=== PATIENT | female | born 1940 | race Caucasian/White ===

== ENCOUNTER 2017-05-24 16:22 | Inpatient (IN) | payer MEDICARE, BC ==
[~2017-05-24] VITALS: Ht 154.9 cm; Wt 68.0 kg
[2017-05-24 16:54] LABS: HEMATOCRIT 41.2 % (37.0-47.0); MEAN CORPUSCULAR VOLUME 96 FL (80-99); PLATELET COUNT 283 K/UL (150-450); RED CELL DISTRIBUTION WIDTH 13.9 % (11.6-14.8); WHITE BLOOD COUNT 12.2 K/UL (4.8-10.8)
[2017-05-24 17:37] VITALS: BP 107/84
[2017-05-24 17:49] LABS: ANION GAP 10 mmol/L (5-15); BLOOD UREA NITROGEN 12 mg/dL (7-18); CALCIUM 9.5 MG/DL (8.5-10.1); CARBON DIOXIDE 25 MMOL/L (21-32); CHLORIDE 105 MMOL/L (98-107); CREATININE 1.2 MG/DL (0.55-1.30); POTASSIUM 4.1 MMOL/L (3.5-5.1); SODIUM 140 MMOL/L (136-145)
[2017-05-24 18:02] LABS: ALANINE AMINOTRANSFERASE 10 U/L (12-78); ALBUMIN 3.6 G/DL (3.4-5.0); ALKALINE PHOSPHATASE 59 U/L (46-116); ASPARTATE AMINO TRANSFERASE 25 U/L (15-37); BILIRUBIN,TOTAL 0.4 MG/DL (0.2-1.0); CKMB 2.2 NG/ML (0.0-3.6); CREATINE KINASE 88 U/L (26-308)
[2017-05-24] MEDS ORDERED: HYDROCHLOROTHIA50 MG ORAL (19:05)
[2017-05-24] MEDS ORDERED: LABETALOL HCL100 MG ORAL (19:05)
[2017-05-24] MEDS ORDERED: BISACODYL5 MG ORAL (19:05)
[2017-05-24] MEDS ORDERED: PANTOPRAZOLE SO40 MG ORAL (19:05)
[2017-05-24] MEDS ORDERED: B COMPLEX1 EACH ORAL (19:05)
[2017-05-24] MEDS ORDERED: POTASSIUM CHLO20 ME1 ORAL (19:05)
[2017-05-24] MEDS ORDERED: MIRALAX17 G2 ORAL (19:05)
[2017-05-24] MEDS ORDERED: PREDNISONE10 MG ORAL (19:05)
[2017-05-24] MEDS ORDERED: LEXAPRO10 MG ORAL (19:05)
[2017-05-24] MEDS ORDERED: NEURONTIN100 MG ORAL (19:05)
[2017-05-24] MEDS ORDERED: BENADRYL25 MG ORAL (19:05)
--- NOTE | 2017-05-24 19:10 | Emergency Room Report ---
History of Present Illness General Chief Complaint: Chest Pain Source: Patient, Medical Record Present Illness HPI 77-year-old female presents ED for evaluation. Per EMS patient presented with chest pain at long-term today started around 2:30. Sudden at rest. Pressure -like, left-sided, nonradiating. Patient was given aspirin and nitroglycerin x2 with chest pain resolved. Denies any chest pain at this time. Denies any fevers or chills. Denies cough. No other active any relieving factors. Denies any other associated symptoms Allergies: Coded Allergies: CIPROFLOXACIN (Unverified Allergy, Unknown, 05/24/17) LEVOFLOXACIN (Unverified Allergy, Unknown, 05/24/17) MORPHINE (Verified Allergy, Unknown, RASH, 05/10/10) QUINOLONES (Unverified Allergy, Unknown, 05/24/17) Uncoded Allergies: CHOCOLATE (Allergy, Unknown, RASH, 05/10/10) Patient History Past Medical History: none Past Surgical History: none Pertinent Family History: none Social History: Reports: smoking, alcohol use, drug use Now: No Immunizations: UTD Reviewed Nursing Documentation: PMH: Agreed, PSxH: Agreed Nursing Documentation-PMH Past Medical History: No History, Except For Hx Hypertension: Yes Review of Systems All Other Systems: negative except mentioned in HPI Physical Exam Vital Signs Date Time Temp Pulse Resp B/P (MAP) Pulse Ox O2 Delivery O2 Flow Rate FiO2 05/24/17 16:07 102 17 116/78 99 Room Air 05/24/17 17:37 97.6 Sp02 EP Interpretation: reviewed, normal General Appearance: no apparent distress, alert, GCS 15, non-toxic Head: normocephalic, atraumatic Eyes: bilateral eye normal inspection, bilateral eye PERRL ENT: hearing grossly normal, normal pharynx, no angioedema, normal voice Neck: full range of motion, supple/symm/no masses Respiratory: chest non-tender, lungs clear, normal breath sounds, speaking full sentences Cardiovascular #1: regular rate, rhythm, no edema Cardiovascular #2: 2+ carotid (R), 2+ carotid (L), 2+ radial (R), 2+ radial (L) , 2+ dorsalis pedis (R), 2+ dorsalis pedis (L) Gastrointestinal: normal bowel sounds, non tender, soft, non-distended, no guarding, no rebound Rectal: deferred Genitourinary: normal inspection, no CVA tenderness Musculoskeletal: back normal, gait/station normal, normal range of motion, non- tender Neurologic: alert, oriented x3, responsive, motor strength/tone normal, sensory intact, speech normal Psychiatric: judgement/insight normal, memory normal, mood/affect normal, no suicidal/homicidal ideation Reflexes: 3+ bicep (R), 3+ bicep (L), 3+ tricep (R), 3+ tricep (L), 3+ knee (R) , 3+ knee (L) Skin: normal color, no rash, warm/dry, well hydrated Lymphatic: no adenopathy Medical Decision Making Diagnostic Impression: Primary Impression: ACS (acute coronary syndrome) ER Course Hospital Course 77-year-old female presents ED complaining of chest pain at long-term. Resolved after asa and nitroglycerin Differential diagnoses include: AZ/unstable angina, contusion, muscle strain, PTX, rib fracture Clinical course Patient placed on stretcher. on ekg monitor tech. After initial history and physical I ordered labs, EKG, chest x-ray labs reviewed- no leukocytosis, hb/hct stable, electrolytes ok, trop negative EKG - NSR, no acute ischemic changes interpreted by me Chest x-ray- cardiomegaly, no acute infitlrate Case discussed with and he agreed to accept the patient to his service for further care and support I. I feel this is a highly complex case requiring extensive working including EKG/Rhythm strip, Xray/CT/US, Blood/urine lab work, repeat exams while in ED, and administration of strong opiates/narcotics for pain control, admission to hospital or close patient follow up. Diagnosis - ACS admitted to telemetry in serious condition Labs Test 05/24/17 16:45 White Blood Count 12.2 K/UL (4.8-10.8) Red Blood Count 4.30 M/UL (4.20-5.40) Hemoglobin 13.0 G/DL (12.0-16.0) Hematocrit 41.2 % (37.0-47.0) Mean Corpuscular Volume 96 FL (80-99) Mean Corpuscular Hemoglobin 30.2 PG (27.0-31.0) Mean Corpuscular Hemoglobin Concent 31.5 G/DL (32.0-36.0) Red Cell Distribution Width 13.9 % (11.6-14.8) Platelet Count 283 K/UL (150-450) Mean Platelet Volume 7.4 FL (6.5-10.1) Neutrophils (%) (Auto) % (45.0-75.0) Lymphocytes (%) (Auto) % (20.0-45.0) Monocytes (%) (Auto) % (1.0-10.0) Eosinophils (%) (Auto) % (0.0-3.0) Basophils (%) (Auto) % (0.0-2.0) Differential Total Cells Counted 100 Neutrophils % (Manual) 85 % (45-75) Lymphocytes % (Manual) 10 % (20-45) Monocytes % (Manual) 3 % (1-10) Eosinophils % (Manual) 2 % (0-3) Basophils % (Manual) 0 % (0-2) Band Neutrophils 0 % (0-8) Platelet Estimate Adequate Platelet Morphology Normal Red Blood Cell Morphology Normal Sodium Level 140 MMOL/L (136-145) Potassium Level 4.1 MMOL/L (3.5-5.1) Chloride Level 105 MMOL/L (98-107) Carbon Dioxide Level 25 MMOL/L (21-32) Anion Gap 10 mmol/L (5-15) Blood Urea Nitrogen 12 mg/dL (7-18) Creatinine 1.2 MG/DL (0.55-1.30) Estimat Glomerular Filtration Rate mL/min (>60) Glucose Level 121 MG/DL (74-106) Calcium Level 9.5 MG/DL (8.5-10.1) Total Bilirubin 0.4 MG/DL (0.2-1.0) Aspartate Amino Transf (AST/SGOT) 25 U/L (15-37) Alanine Aminotransferase (ALT/SGPT) 10 U/L (12-78) Alkaline Phosphatase 59 U/L (46-116) Total Creatine Kinase 88 U/L (26-308) Creatine Kinase MB 2.2 NG/ML (0.0-3.6) Creatine Kinase MB Relative Index 2.5 Troponin I 0.000 ng/mL (0.000-0.056) Pro-B-Type Natriuretic Peptide 117 pg/mL (0-125) Total Protein 7.1 G/DL (6.4-8.2) Albumin 3.6 G/DL (3.4-5.0) Globulin 3.5 g/dL Albumin/Globulin Ratio 1.0 (1.0-2.7) EKG Diagnostic Results Rate: normal Rhythm: NSR ST Segments: no acute changes ASA given to the pt in ED: No - given by ems Rhythm Strip Diag. Results EP Interpretation: yes Rhythm: NSR, no PVC's, no ectopy Chest X-Ray Diagnostic Results Chest X-Ray Diagnostic Results : Chest X-Ray Ordered: Yes # of Views/Limited/Complete: 1 View Indication: Chest Pain EP Interpretation: Yes Interpretation: no consolidation, no effusion, no pneumothorax, no acute cardiopulmonary disease Impression: No acute disease Electronically Signed by: Electronically signed by Narciso Sevilla MD Last Vital Signs Date Time Temp Pulse Resp B/P (MAP) Pulse Ox O2 Delivery O2 Flow Rate FiO2 05/24/17 17:39 93 18 Room Air 05/24/17 17:37 97.6 107/84 97 Status: improved Disposition: ADMITTED INPATIENT Condition: Serious Referrals: JAMES MARES (PCP) NARCISO SEVILLA M.D. May 24, 2017 19:10
[2017-05-24] MEDS ORDERED: SENNA8.6 M2 PO (19:17)
[2017-05-24] MEDS ORDERED: COLACE100 MG ORAL (19:17)
[2017-05-24] MEDS ORDERED: TRAZODONE HCL100 MG ORAL (19:17)
[2017-05-24] MEDS ORDERED: SYNTHROID75 MCG ORAL (19:17)
[2017-05-24] MEDS ORDERED: SEROQUEL25 MG ORAL (19:17)
[2017-05-24] MEDS ORDERED: HYDRALAZINE HCL10 MG ORAL (19:17)
[2017-05-24] MEDS ORDERED: FENTANYL1 EACH TDERMAL (19:17)
[2017-05-24] MEDS ORDERED: CALCIUM CITRAT250 M1 PO (19:17)
[2017-05-24] MEDS ORDERED: XARELTO20 MG ORAL (19:17)
[2017-05-24 19:19] VITALS: BP 87/57
[2017-05-24] MEDS ORDERED: oxyCODONE HCL/Acetaminophen 5/325mg ORAL ONE ×2 (19:52→20:00)
[2017-05-24 20:01] VITALS: BP 108/53
[2017-05-24] MEDS ORDERED: Miralax 17gm pkt ORAL PRN ×2 (22:45→23:00)
[2017-05-24] MEDS ORDERED: TraZODone 100mg tab ORAL SCH (22:45)
[2017-05-25] VITALS: BP 124/94
[2017-05-25] MEDS: TraZODone 100mg tab ORAL SCH ×2 (02:01→21:15)
[2017-05-25 03:52] VITALS: BP 145/77
[2017-05-25 04:49] LABS: CREATINE KINASE 78 U/L (26-308)
[2017-05-25 08:00] VITALS: BP 140/70
[2017-05-25] MEDS: HydrALAZINE 10mg Tab ORAL SCH ×3 (08:35→18:20)
[2017-05-25] MEDS: Docusate 100mg cap ORAL SCH ×2 (08:35→18:20)
[2017-05-25] MEDS: Bisacodyl EC 5mg tab ORAL SCH (08:36)
[2017-05-25] MEDS: Xarelto 10mg tab ORAL SCH (08:40)
[2017-05-25] MEDS ORDERED: Docusate 100mg cap ORAL SCH (09:00)
[2017-05-25] MEDS ORDERED: HydrALAZINE 10mg Tab ORAL SCH (09:00)
[2017-05-25] MEDS ORDERED: Xarelto 10mg tab ORAL SCH (09:00)
--- NOTE | 2017-05-25 09:34 | Diagnostic Imaging Report ---
Indication: Chest pain Technique: XRAY Chest 1v Comparison: 05/09/2010 Findings: Limited exam due to low lung volumes, this exaggerates the cardiac mediastinal contour and pulmonary vascularity. Heart size is likely stable allowing for differences in technique. No definite focal airspace consolidation. No pleural effusion or pneumothorax. No acute osseous abnormality. Impression: Limited exam with low lung volumes, which artifactually exaggerate heart size and pulmonary vascularity. Repeat exam with improved inspiratory effort is recommended for more reliable assessment. No focal airspace consolidation, pleural effusion or pneumothorax. Study obtained via the emergency department however patient admitted to the hospital at time of dictation of the final report.
[2017-05-25 12:00] VITALS: BP 114/57
--- NOTE | 2017-05-25 13:13 | Geriatric Progress Note ---
Subjective Interval Events Patient of Paul Henson at [facility] x years, sent to [facility] ED for c/o chest pain. Initial EKG, troponin unremarkable.except for possible old lateral infarct. Currently c/o weakness, difficulty ambulating. C/o chest pain are vague and not typical for ACS. Patient seems hypersensitive to palpation throughout, with dysthymic affect. PMH: 1. Chronic diastolic CHF. 2. Chronic pain syndrome. 3. DDD. 4. GERD. 5. Hyperlipidemia. 6. HTN. 7. Hypothyroidism. 8. Hx acute embolic stroke. 9. S/p hyst. 10. S/p ? bowel obstruction with permanent colostomy. - s/p periumbilical hernia repair, colonic vesical fistula. 11. Sleep disorder. 12. ? Lupus. 13. Gait instability, FWW, Assist x 1. Meds: HCTZ 50mg qd. Labetalol 100mg daily. Lexapro 30mg qd. MiraLax 17gm qd. Neurontin 300mg daily. Pantoprazole 40 daily. KCl 20 meq qd. Prednisone 10mg daily. Senna 2 tabs qhs. Synthroid 75mcg daily. Trazodone 200mg qhs. Xarelto 20mg qd. Colace 200mg bid. Seroquel 25mg bid. CaCitrate 500mg tid. Hydralazine 15mg tid. Benadryl 50mg q6 prn. Fentanyl 25 mcg/hr q72. Hydroxyzine 25mg qhs prn. DuoNeb UD q4 prn. Percocet 10/325 q4 prn. Zofran 4 q6 prn. Zyrtec 10mg prn qd. PE: Hypersensitive to contact all over skin with no visible signs of irritation , erythema, calor. Chest: clear. CV: RR Abd: obese, ostomy in LLQ. Ext: without focal tenderness. Obese. mod/max A to stand. Normal speech, some vagueness in history, dysthymia, insisting that brother is forcing her to stay at [facility] rather than go home. No evidence for ACS. ?UTI. ?atypical influenza episode. ?mild adrenal insufficiency due to chronic suppression by prednisone. Suspect major chronic depression with somatization, anxiety, chronic pain. Check HgbA1c, urine, rapid influenza test to determine if patient can return to SNF or should be admitted. Dictated #[id number]. Geriatric Geriatric Last 24 Hour Vital Signs Date Time Temp Pulse Resp B/P (MAP) Pulse Ox O2 Delivery O2 Flow Rate FiO2 05/25/17 08:37 84 140/70 05/25/17 08:35 140/70 05/25/17 08:00 88 05/25/17 08:00 97.2 91 18 140/70 95 Room Air 05/25/17 04:00 85 05/25/17 03:52 97.4 99 18 145/77 95 Room Air 05/25/17 00:00 97.2 109 20 124/94 95 Room Air 05/25/17 00:00 91 05/24/17 20:52 97.6 05/24/17 20:02 97.6 92 14 108/53 96 Room Air 05/24/17 20:01 97.6 92 14 108/53 96 Room Air 05/24/17 20:00 73 05/24/17 17:39 93 18 Room Air 05/24/17 17:37 97.6 93 18 107/84 97 Room Air 05/24/17 16:07 102 17 116/78 99 Room Air Intake and Output 05/24/17 05/25/17 19:00 07:00 Intake Total 0 ml 240 ml Balance 0 ml 240 ml Intake Oral 240 ml Other 0 ml Laboratory Tests Test 05/24/17 16:45 05/25/17 04:00 05/25/17 12:00 White Blood Count 12.2 K/UL (4.8-10.8) H Red Blood Count 4.30 M/UL (4.20-5.40) Hemoglobin 13.0 G/DL (12.0-16.0) Hematocrit 41.2 % (37.0-47.0) Mean Corpuscular Volume 96 FL (80-99) Mean Corpuscular Hemoglobin 30.2 PG (27.0-31.0) Mean Corpuscular Hemoglobin Concent 31.5 G/DL (32.0-36.0) L Red Cell Distribution Width 13.9 % (11.6-14.8) Platelet Count 283 K/UL (150-450) Mean Platelet Volume 7.4 FL (6.5-10.1) Neutrophils (%) (Auto) % (45.0-75.0) Lymphocytes (%) (Auto) % (20.0-45.0) Monocytes (%) (Auto) % (1.0-10.0) Eosinophils (%) (Auto) % (0.0-3.0) Basophils (%) (Auto) % (0.0-2.0) Differential Total Cells Counted 100 Neutrophils % (Manual) 85 % (45-75) H Lymphocytes % (Manual) 10 % (20-45) L Monocytes % (Manual) 3 % (1-10) Eosinophils % (Manual) 2 % (0-3) Basophils % (Manual) 0 % (0-2) Band Neutrophils 0 % (0-8) Platelet Estimate Adequate Platelet Morphology Normal Red Blood Cell Morphology Normal Sodium Level 140 MMOL/L (136-145) Potassium Level 4.1 MMOL/L (3.5-5.1) Chloride Level 105 MMOL/L (98-107) Carbon Dioxide Level 25 MMOL/L (21-32) Anion Gap 10 mmol/L (5-15) Blood Urea Nitrogen 12 mg/dL (7-18) Creatinine 1.2 MG/DL (0.55-1.30) Estimat Glomerular Filtration Rate mL/min (>60) Glucose Level 121 MG/DL (74-106) H Calcium Level 9.5 MG/DL (8.5-10.1) Total Bilirubin 0.4 MG/DL (0.2-1.0) Aspartate Amino Transf (AST/SGOT) 25 U/L (15-37) Alanine Aminotransferase (ALT/SGPT) 10 U/L (12-78) L Alkaline Phosphatase 59 U/L (46-116) Total Creatine Kinase 88 U/L (26-308) 78 U/L (26-308) Creatine Kinase MB 2.2 NG/ML (0.0-3.6) Creatine Kinase MB Relative Index 2.5 Troponin I 0.000 ng/mL (0.000-0.056) 0.000 ng/mL (0.000-0.056) Pending Pro-B-Type Natriuretic Peptide 117 pg/mL (0-125) Total Protein 7.1 G/DL (6.4-8.2) Albumin 3.6 G/DL (3.4-5.0) Globulin 3.5 g/dL Albumin/Globulin Ratio 1.0 (1.0-2.7) Current Medications Medications (Trade) Dose Ordered Sig/Osorio Route PRN Reason Start Time Stop Time Status Last Admin Dose Admin Bisacodyl (Dulcolax) 10 mg DAILY ORAL 05/25/17 09:00 06/24/17 08:59 Calcium Citrate (Olman-Citrate) 500 mg TID ORAL 05/25/17 09:00 06/24/17 08:59 Diphenhydramine HCl (Benadryl) 50 mg Q6H PRN ORAL Itching 05/25/17 04:45 06/24/17 04:44 Docusate Sodium (Colace) 200 mg TWICE A DAY ORAL 05/25/17 09:00 06/24/17 08:59 05/25/17 08:35 Escitalopram Oxalate (Lexapro) 30 mg DAILY ORAL 05/25/17 09:00 06/24/17 08:59 05/25/17 08:36 Gabapentin (Neurontin) 300 mg BEDTIME ORAL 05/25/17 01:30 06/24/17 01:29 05/25/17 02:01 Hydralazine HCl (Apresoline) 15 mg TID ORAL 05/25/17 09:00 06/24/17 08:59 05/25/17 08:35 Hydrochlorothiazide (Hydrodiuril) 50 mg 3XW ORAL 05/26/17 09:00 06/25/17 08:59 Labetalol HCl (Normodyne) 100 mg DAILY ORAL 05/25/17 09:00 06/24/17 08:59 05/25/17 08:37 Levothyroxine Sodium (Synthroid) 75 mcg DAILY@0630 ORAL 05/25/17 06:30 06/24/17 06:29 05/25/17 06:01 Pantoprazole (Protonix) 40 mg ACBREAKFAST ORAL 05/25/17 06:30 06/24/17 06:29 05/25/17 06:00 Polyethylene Glycol (Miralax) 17 gm DAILY PRN ORAL Constipation 05/24/17 23:00 06/23/17 22:59 Potassium Chloride (K-Dur) 20 meq DAILY ORAL 05/25/17 09:00 06/24/17 08:59 05/25/17 08:36 Prednisone (predniSONE) 10 mg DAILY ORAL 05/25/17 09:00 06/24/17 08:59 05/25/17 08:39 Quetiapine Fumarate (SEROquel) 25 mg Q12HR ORAL 05/25/17 09:00 06/24/17 08:59 05/25/17 08:39 Rivaroxaban (Xarelto) 20 mg DAILY ORAL 05/25/17 09:00 06/24/17 08:59 05/25/17 08:40 Trazodone HCl (Desyrel) 200 mg BEDTIME ORAL 05/25/17 01:30 06/24/17 01:29 05/25/17 02:01 Vitamin B Complex (Vitamin B Complex) 1 ea DAILY ORAL 05/25/17 09:00 06/24/17 08:59 Height (Feet): 5 Height (Inches): 1.00 Weight (Pounds): 150 KEILA KULKARNI May 25, 2017 13:13
--- NOTE | 2017-05-25 15:04 | Cardiology Progress Note ---
Assessment/Plan Assessment/Plan chest pain radiating to eh back repeat cxr to exclude widening of mediastinum echo perfusion imaging [id number] Objective Last 24 Hour Vital Signs Date Time Temp Pulse Resp B/P (MAP) Pulse Ox O2 Delivery O2 Flow Rate FiO2 05/25/17 13:22 114/73 05/25/17 08:37 84 140/70 05/25/17 08:35 140/70 05/25/17 08:00 88 05/25/17 08:00 97.2 91 18 140/70 95 Room Air 05/25/17 04:00 85 05/25/17 03:52 97.4 99 18 145/77 95 Room Air 05/25/17 00:00 97.2 109 20 124/94 95 Room Air 05/25/17 00:00 91 05/24/17 20:52 97.6 05/24/17 20:02 97.6 92 14 108/53 96 Room Air 05/24/17 20:01 97.6 92 14 108/53 96 Room Air 05/24/17 20:00 73 05/24/17 17:39 93 18 Room Air 05/24/17 17:37 97.6 93 18 107/84 97 Room Air 05/24/17 16:07 102 17 116/78 99 Room Air Intake and Output 05/24/17 05/25/17 19:00 07:00 Intake Total 0 ml 240 ml Balance 0 ml 240 ml Intake Oral 240 ml Other 0 ml Laboratory Tests Test 05/24/17 16:45 05/25/17 04:00 05/25/17 12:00 White Blood Count 12.2 K/UL (4.8-10.8) H Red Blood Count 4.30 M/UL (4.20-5.40) Hemoglobin 13.0 G/DL (12.0-16.0) Hematocrit 41.2 % (37.0-47.0) Mean Corpuscular Volume 96 FL (80-99) Mean Corpuscular Hemoglobin 30.2 PG (27.0-31.0) Mean Corpuscular Hemoglobin Concent 31.5 G/DL (32.0-36.0) L Red Cell Distribution Width 13.9 % (11.6-14.8) Platelet Count 283 K/UL (150-450) Mean Platelet Volume 7.4 FL (6.5-10.1) Neutrophils (%) (Auto) % (45.0-75.0) Lymphocytes (%) (Auto) % (20.0-45.0) Monocytes (%) (Auto) % (1.0-10.0) Eosinophils (%) (Auto) % (0.0-3.0) Basophils (%) (Auto) % (0.0-2.0) Differential Total Cells Counted 100 Neutrophils % (Manual) 85 % (45-75) H Lymphocytes % (Manual) 10 % (20-45) L Monocytes % (Manual) 3 % (1-10) Eosinophils % (Manual) 2 % (0-3) Basophils % (Manual) 0 % (0-2) Band Neutrophils 0 % (0-8) Platelet Estimate Adequate Platelet Morphology Normal Red Blood Cell Morphology Normal Sodium Level 140 MMOL/L (136-145) Potassium Level 4.1 MMOL/L (3.5-5.1) Chloride Level 105 MMOL/L (98-107) Carbon Dioxide Level 25 MMOL/L (21-32) Anion Gap 10 mmol/L (5-15) Blood Urea Nitrogen 12 mg/dL (7-18) Creatinine 1.2 MG/DL (0.55-1.30) Estimat Glomerular Filtration Rate mL/min (>60) Glucose Level 121 MG/DL (74-106) H Calcium Level 9.5 MG/DL (8.5-10.1) Total Bilirubin 0.4 MG/DL (0.2-1.0) Aspartate Amino Transf (AST/SGOT) 25 U/L (15-37) Alanine Aminotransferase (ALT/SGPT) 10 U/L (12-78) L Alkaline Phosphatase 59 U/L (46-116) Total Creatine Kinase 88 U/L (26-308) 78 U/L (26-308) Creatine Kinase MB 2.2 NG/ML (0.0-3.6) Creatine Kinase MB Relative Index 2.5 Troponin I 0.000 ng/mL (0.000-0.056) 0.000 ng/mL (0.000-0.056) 0.000 ng/mL (0.000-0.056) Pro-B-Type Natriuretic Peptide 117 pg/mL (0-125) Total Protein 7.1 G/DL (6.4-8.2) Albumin 3.6 G/DL (3.4-5.0) Globulin 3.5 g/dL Albumin/Globulin Ratio 1.0 (1.0-2.7) Hemoglobin A1c 5.4 % (4.3-6.0) Microbiology Date/Time Source Procedure Growth Status 05/25/17 14:00 Nasal Nares Right Influenza Types A,B Antigen (ANA LAURA) - Final Complete WILI BLANKENSHIP May 25, 2017 15:04
[2017-05-25 16:00] VITALS: BP 135/72
[2017-05-25] MEDS ORDERED: Lexiscan 0.4mg/5ml syringe IV PRN (16:00)
[2017-05-25 18:45] LABS: APPEARANCE,URINE SLIGHTLY CLOUDY; BILIRUBIN, URINE NEGATIVE (NEGATIVE); COLOR,URINE PALE YELLOW; GLUCOSE, URINE (UA) NEGATIVE (NEGATIVE); KETONES,URINE 1+ (NEGATIVE); LEUKOCYTE ESTERASE ,URINE 2+ (NEGATIVE); NITRITE,URINE POSITIVE (NEGATIVE); PH,URINE 7 (4.5-8.0); PROTEIN,URINE NEGATIVE (NEGATIVE); UROBILINOGEN,URINE NORMAL MG/DL (0.0-1.0)
[2017-05-25 20:00] VITALS: BP 127/61
[2017-05-25] MEDS ORDERED: TraZODone 100mg tab ORAL SCH (21:00)
--- NOTE | 2017-05-25 23:45 | Consultation ---
DATE OF CONSULTATION: 05/25/2017 CARDIOLOGY CONSULTATION CONSULTING PHYSICIAN: Heath Dolan M.D. REFERRING PHYSICIAN: Frank Vila M.D. REASON FOR REFERRAL: Chest pain. HISTORY OF PRESENT ILLNESS: This is an elderly female, a resident of [facility]. The patient is somewhat of a poor historian. She really does not remember her medical problems, but she does remember that yesterday she was having some pain in the chest, across the front of the chest that radiated to her back and so this lasted for a long time. She was brought to the emergency room at [facility] where she was subsequently admitted. Cardiac enzymes are negative. This consultation was requested for evaluation of this discomfort. She is no longer having this pain. She has never had this pain on prior occasions and no relieving or exacerbating factors noted by the patient. The patient does walk at the facility where she denies having any chest pain or shortness of breath when she does walk. She uses one pillow to sleeping at night and there is no palpitation. No dizziness or lightheadedness. PAST MEDICAL HISTORY: According to [facility] records is positive for history of CVA embolic, back pain, cataract, chronic diastolic heart failure disk disease, esophageal reflux, hyperlipidemia, hypertension, hypothyroidism, insomnia, lupus mononeuritis, status post colostomy, chronic pain, lower extremity edema, partial small bowel obstruction with hernia repair, chronic constipation, major depression, diabetes mellitus, and hypothyroidism. She is apparently Full Code. ALLERGIES: She denies allergies to any medications. SOCIAL HISTORY: She does not smoke or drink at the present time. Does not use drugs. [facility]. REVIEW OF SYSTEMS: GASTROINTESTINAL: She denies. GENITOURINARY: She denies. PULMONARY: She denies. CONSTITUTIONAL: She denies. PHYSICAL EXAMINATION: GENERAL: Shows to be elderly female, obese, in no apparent respiratory distress. NECK: Supple. No jugular venous distention. No abdominojugular reflux noted. LUNGS: Appear to be clear to auscultation and percussion. CHEST WALL: Tender to palpation, but it is not the same exact pain that she was having, but quite similar she states. CARDIAC: S1 is normal. S2 is normal. Regular rate and rhythm. No heaves, thrills, gallops, or rubs are noted. ABDOMEN: Soft, obese. Positive bowel sounds. EXTREMITIES: There is no edema. Pneumatic compression stockings are in place. NEUROLOGICAL: She is awake, alert, responsive, in no respiratory distress. LABORATORY AND DIAGNOSTIC DATA: EKG shows normal sinus rhythm, normal QRS axis, and delay in R-wave progression. White count 12.2, hemoglobin 13, and platelet count 283,000. All troponins are negative. CK of 78. A1c of 5.4. Sodium 140, potassium 4.1, chloride 105, bicarbonate 25, BUN 12, creatinine 1.2, and glucose 121. Liver function tests are normal. ASSESSMENT AND PLAN: 1. Chest pain, no evidence of myocardial necrosis. 2. Hypertension. 3. History of chronic pain. 4. Chronic lumbar disk disease. 5. Degenerative joint disease. 6. Lupus. 7. Reported history of congestive heart failure. 8. History of embolic cerebrovascular accident, on Xarelto. 9. Diabetes mellitus. 10. Gastroesophageal reflux disease. This patient was seen in cardiac consultation. The patient's electrocardiogram is fairly unremarkable. Chest x-ray that has been performed shows limited exam with low lung volumes, exaggerated heart size and pulmonary vascularity. No focal consolidation, pleural effusion, or pneumothorax is noted. The patient's blood pressure has been in the range of 114 to 145 and temperature 97.2 degrees. We would recommend repeat chest x-ray, recommend echocardiogram, and recommend a myocardial perfusion imaging. She indicates the pain radiated to her chest, but we will see if there is any indication that she has any widening of the mediastinum on the chest x-ray that may warrant further evaluation. Mild degree of renal insufficiency with creatinine of 1.2. Additional contrast may endanger her renal function and needs to be warranted. Heath Dolan M.D. DR: Tatyana JOB#: [id number] CC:
[2017-05-26] MEDS: cefTRIAXone 1 GM in D5W 55 ML IVPB SCH (01:29)
[2017-05-26 04:00] VITALS: BP 151/75
[2017-05-26 08:00] VITALS: BP 111/56
[2017-05-26] MEDS: HydrALAZINE 10mg Tab ORAL SCH ×3 (09:00→17:57)
[2017-05-26] MEDS: Bisacodyl EC 5mg tab ORAL SCH (10:12)
[2017-05-26] MEDS: Xarelto 10mg tab ORAL SCH (10:12)
[2017-05-26] MEDS: Docusate 100mg cap ORAL SCH ×2 (10:13→17:56)
--- NOTE | 2017-05-26 11:36 | Diagnostic Imaging Report ---
Indication: Chest pain Technique: One view of the chest Comparison: 05/24/2017 Findings: Elevated right hemidiaphragm and right perihilar atelectasis versus linear scar are unchanged. The lungs and pleural spaces are otherwise clear. The heart size is upper limits of normal. No significant interim change Impression: Unchanged, over 2 days, findings as above.
[2017-05-26 12:00] VITALS: BP 141/73
[2017-05-26] MEDS ORDERED: Tubing IV Secondary IV ONE (15:25)
[2017-05-26 16:00] VITALS: BP 122/66
--- NOTE | 2017-05-26 16:28 | Diagnostic Imaging Report ---
Indications: Chest pain Technique: Single day single isotope protocol utilized. Initially, resting images obtained using IV administration 9.5 millicuries 99M technetium Myoview. Subsequently, patient underwent Lexiscan stress testing. See cardiology report for details. During adenosine infusion, IV administration 31.1 mCi 99 M technetium Myoview. SPECT and planar images obtained. SPECT images gated to 8 phases of the cardiac cycle were also obtained, and reformatted into cine images for evaluation of ejection fraction. Comparison: none Findings: Per cardiology report, patient experienced no symptoms. Per cardiology report, resting EKG demonstrates normal sinus rhythm. During infusion, patient demonstrated 0.[address] depression. Imaging demonstrates no fixed nor reversible post stress perfusion defects. Normal cardiac chamber size. Calculated post stress ejection fraction 95% Impression: Nonischemic clinical response to pharmacologic stress, per cardiology report Equivocal electrocardiographic response to pharmacologic stress, per cardiology report No imaging findings to suggest ischemia, at level of stress achieved. Calculated post stress ejection fraction greater than 70%
--- NOTE | 2017-05-26 18:14 | Cardiology Report ---
APPROVED REPORT EXAM: Two-dimensional and M-mode echocardiogram with Doppler and color Doppler. INDICATION Chest Pain Limited study due to pt resistance . Normal left ventricular chamber size, systolic function and wall motion . Left ventricular ejection fraction estimated to 60-65 %. No evidence of ventricular hypertrophy . No evidence of pericardial effusion. All other cardiac chamber sizes are within normal limits. Focal aortic valve sclerosis with adequate cusp excursion. Thickened mitral valve leaflets with normal excursion. Mitral annulus and aortic root calcification. Normal tricuspid valve structure. A color flow and spectral Doppler study was performed and revealed: Mild aortic insufficiency . Trace mitral regurgitation. Mitral diastolic velocities suggest reduced left ventricular relaxation c/w mild LV diastolic dysfunction (Grade I ). trace tricuspid regurgitation.
--- NOTE | 2017-05-26 19:40 | Geriatric Progress Note ---
Subjective Interval Events Patient smiling, affect much more cheerful today. Reports feeling better, but tired. Received Percocet prn. No call back from brother as yet. Urine growing Gm negative sudeep. Cardiac echo unremarkable, EF 60-56%. Lexiscan without focal abnormalities, calculated EF 95%. Eating well per staff. Constitutional: Reports: pain Respiratory: Reports: shortness of breath Cardiovascular: Reports: chest pain Gastrointestinal/Abdominal: Reports: abdominal pain Genitourinary: Reports: dysuria Musculoskeletal: Reports: back pain Geriatric Geriatric Last 24 Hour Vital Signs Date Time Temp Pulse Resp B/P (MAP) Pulse Ox O2 Delivery O2 Flow Rate FiO2 05/26/17 17:57 122/66 05/26/17 16:00 89 05/26/17 16:00 97.1 89 20 122/66 98 Room Air 05/26/17 14:18 84 141/73 05/26/17 14:16 141/73 05/26/17 12:00 97.0 94 21 141/73 98 Room Air 05/26/17 12:00 73 05/26/17 09:00 111/56 05/26/17 08:00 97.7 87 21 111/56 96 Room Air 05/26/17 08:00 80 05/26/17 04:13 74 05/26/17 04:00 98.2 20 20 151/75 94 Room Air 05/25/17 23:50 73 05/25/17 20:03 95 05/25/17 20:00 97.7 89 20 127/61 95 Room Air Intake and Output 05/25/17 05/26/17 19:00 07:00 Intake Total 120 ml 55 ml Balance 120 ml 55 ml Intake Oral 120 ml IV Total 55 ml # Voids 3 1 Laboratory Tests Test 05/25/17 20:01 Troponin I 0.000 ng/mL (0.000-0.056) Current Medications Medications (Trade) Dose Ordered Sig/Osorio Route PRN Reason Start Time Stop Time Status Last Admin Dose Admin Bisacodyl (Dulcolax) 10 mg DAILY ORAL 05/25/17 09:00 06/24/17 08:59 05/26/17 10:12 Calcium Citrate (Olman-Citrate) 500 mg TID ORAL 05/25/17 09:00 06/24/17 08:59 05/26/17 17:57 Ceftriaxone Sodium 1 gm/ Dextrose 55 ml @ 110 mls/hr Q24H IVPB 05/26/17 00:00 06/02/17 00:00 05/26/17 01:29 Diphenhydramine HCl (Benadryl) 50 mg Q6H PRN ORAL Itching 05/25/17 04:45 06/24/17 04:44 Docusate Sodium (Colace) 200 mg TWICE A DAY ORAL 05/25/17 09:00 06/24/17 08:59 05/26/17 17:56 Escitalopram Oxalate (Lexapro) 30 mg DAILY ORAL 05/25/17 09:00 06/24/17 08:59 05/26/17 10:11 Gabapentin (Neurontin) 300 mg BEDTIME ORAL 05/25/17 01:30 06/24/17 01:29 05/25/17 21:15 Hydralazine HCl (Apresoline) 15 mg TID ORAL 05/25/17 09:00 06/24/17 08:59 05/26/17 17:57 Hydrochlorothiazide (Hydrodiuril) 50 mg 3XW ORAL 05/26/17 09:00 06/25/17 08:59 05/26/17 10:11 Labetalol HCl (Normodyne) 100 mg DAILY ORAL 05/25/17 09:00 06/24/17 08:59 05/26/17 14:18 Levothyroxine Sodium (Synthroid) 75 mcg DAILY@0630 ORAL 05/25/17 06:30 06/24/17 06:29 05/26/17 06:18 Oxycodone/ Acetaminophen (Percocet 10/325) 1 tab Q4H PRN ORAL Moderate Pain (Pain Scale 4-6) 05/25/17 19:00 06/01/17 18:59 05/26/17 15:14 Pantoprazole (Protonix) 40 mg ACBREAKFAST ORAL 05/25/17 06:30 06/24/17 06:29 05/26/17 06:18 Polyethylene Glycol (Miralax) 17 gm DAILY PRN ORAL Constipation 05/24/17 23:00 06/23/17 22:59 Potassium Chloride (K-Dur) 20 meq DAILY ORAL 05/25/17 09:00 06/24/17 08:59 05/26/17 10:11 Prednisone (predniSONE) 10 mg DAILY ORAL 05/25/17 09:00 06/24/17 08:59 05/26/17 10:12 Quetiapine Fumarate (SEROquel) 25 mg Q12HR ORAL 05/25/17 09:00 06/24/17 08:59 05/26/17 10:12 Regadenoson (Lexiscan) 0.4 mg ONCE PRN IV STRESS TEST 05/25/17 16:00 05/27/17 15:59 05/26/17 14:15 Rivaroxaban (Xarelto) 20 mg DAILY ORAL 05/25/17 09:00 06/24/17 08:59 05/26/17 10:12 Trazodone HCl (Desyrel) 200 mg BEDTIME ORAL 05/25/17 01:30 06/24/17 01:29 05/25/17 21:15 Vitamin B Complex (Vitamin B Complex) 1 ea DAILY ORAL 05/25/17 09:00 06/24/17 08:59 05/26/17 10:12 Height (Feet): 5 Height (Inches): 1.00 Weight (Pounds): 150 KEILA KULKARNI May 26, 2017 19:40
[2017-05-26] MEDS ORDERED: CEFTRIAXONE1 G2 IV (19:57)
[2017-05-26 20:00] VITALS: BP 123/64
[2017-05-26] MEDS: TraZODone 100mg tab ORAL SCH (20:39)
--- NOTE | 2017-05-26 20:42 | Cardiology Progress Note ---
Assessment/Plan Assessment/Plan 1. Chest pain, no evidence of myocardial necrosis. 2. Hypertension. 3. History of chronic pain. 4. Chronic lumbar disk disease. 5. Degenerative joint disease. 6. Lupus. 7. Reported history of congestive heart failure. 8. History of embolic cerebrovascular accident, on Xarelto. 9. Diabetes mellitus. 10. Gastroesophageal reflux disease echo norml lv function tele neg trop neg perfusion neg for ischemai cxr repeat was fien ok to dc form my view point Subjective Cardiovascular: Denies: chest pain, lightheadedness Respiratory: Denies: shortness of breath Gastrointestinal/Abdominal: Denies: abdominal pain Genitourinary: Denies: burning Objective Last 24 Hour Vital Signs Date Time Temp Pulse Resp B/P (MAP) Pulse Ox O2 Delivery O2 Flow Rate FiO2 05/26/17 20:00 97.3 95 16 123/64 95 05/26/17 17:57 122/66 05/26/17 16:00 89 05/26/17 16:00 97.1 89 20 122/66 98 Room Air 05/26/17 14:18 84 141/73 05/26/17 14:16 141/73 05/26/17 12:00 97.0 94 21 141/73 98 Room Air 05/26/17 12:00 73 05/26/17 09:00 111/56 05/26/17 08:00 97.7 87 21 111/56 96 Room Air 05/26/17 08:00 80 05/26/17 04:13 74 05/26/17 04:00 98.2 20 20 151/75 94 Room Air 05/25/17 23:50 73 General Appearance: no apparent distress, alert Neck: supple Cardiovascular: normal rate, regular rhythm Respiratory/Chest: lungs clear Abdomen: normal bowel sounds, non tender, soft Extremities: no swelling Intake and Output 05/25/17 05/26/17 19:00 07:00 Intake Total 120 ml 55 ml Balance 120 ml 55 ml Intake Oral 120 ml IV Total 55 ml # Voids 3 1 Microbiology Date/Time Source Procedure Growth Status 05/25/17 14:00 Nasal Nares Right Influenza Types A,B Antigen (ANA LAURA) - Final Complete 05/24/17 17:40 Nasal Nares MRSA Culture - Final NO METHICILLIN RESISTANT STAPH AUREUS... Complete 05/25/17 16:00 Straight Cath Urine Culture - Preliminary Gram Negative Bacillus 1 Resulted 05/24/17 17:40 Rectum VRE Culture - Final NO VANCOMYCIN RESISTANT ENTEROCOCCUS ... Complete WILI BLANKENSHIP May 26, 2017 20:42
--- NOTE | 2017-05-26 21:45 | History and Physical Report ---
DATE OF ADMISSION: 05/25/2017 The patient was placed on observation on 05/24/2017 and converted to inpatient admission on 05/25/2017. IDENTIFYING INFORMATION: The patient is a 77-year-old woman who complained of recurrent significant chest pain at her care home facility. HISTORY OF PRESENT ILLNESS: This is a patient who apparently has been followed for many years by Dr. Paul Henson. She has been a resident at the [facility] and primarily followed by the P program there. The patient characterizes her presence there as being 8 years or more. Records suggest that it may have been as short as four years. In any event, the patient has multiple chronic medical problems and is functionally quite limited, but has been symptomatically apparently relatively stable there, but developed increasing chest pain and was sent to the emergency room at [facility] for further evaluation and treatment. The patient despite appearing to be coherent seems to have significant cognitive deficits perhaps enhanced by an element of pseudodementia because her responses are vague and difficult to interpret with lack of many details. She herself characterizes her functional abilities as being independent. She thinks that she could leave the [facility] and is only being kept here against her wishes by her brother. Review of the available records seems to indicate the patient has significant chronic symptoms and functional deficits, which limit her ability to care for herself. According to the patient, she has had for approximately a week increasing chest pain, recurrent, which is in the left chest, but it is difficult to characterize otherwise. She appears to deny having shortness of breath, diaphoresis, radiation of the pain and what makes her evaluation somewhat difficult is that she appears to have hypersensitivity to palpation over her entire body and palpation over the chest elicits her description of marked tenderness in multiple areas as well. In the emergency room, the patient complained of weakness and difficulty ambulating. Her initial EKG showed possible chronic left lateral changes consistent with possible old infarct and an unremarkable troponin. Because of the difficulty clarifying her symptoms and the patient's functional frailty, Dr. Sevilla felt that the patient need to be admitted for further evaluation. She was initially placed on observation status, but because of continuing ambiguity of her symptoms as well as the finding of a recurrent urinary tract infection and need to complete a cardiac ischemia evaluation, the patient was admitted for further evaluation and treatment. PAST MEDICAL HISTORY: 1. Chronic diastolic congestive heart failure. 2. Hypertension. 3. Hyperlipidemia. 4. Chronic pain syndrome. 5. Degenerative disc disease. 6. Gastroesophageal reflux disease. 7. Hypothyroidism. 8. History of an acute embolic stroke 4 years ago. 9. Status post hysterectomy. 10. Status post bowel obstruction with permanent colostomy, status post periumbilical hernia repair times multiple and development of chronic vesiculofistula. 11. Sleep disorder. 12. Diagnosis of lupus for which the patient is taking chronic prednisone, low dose. 13. Gait instability requiring front wheel walker and assist x1. 14. 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 15. Apparent neuropathic syndrome. 16. Apparent history of atrial fibrillation in the past since the patient is on Xarelto for her embolic stroke. CURRENT MEDICATIONS: 1. Hydrochlorothiazide 50 mg a day. 2. Labetalol 100 mg daily. 3. Lexapro 30 mg daily. 4. MiraLAX 17 g daily. 5. Neurontin 300 mg daily. 6. Pantoprazole 40 mg daily. 7. KCl 20 mEq daily. 8. Prednisone 10 mg daily. 9. Senna 2 tabs at each bedtime. 10. Synthroid 75 mcg daily. 11. Trazodone 200 mg at bedtime. 12. Xarelto 20 mg daily. 13. Colace 200 mg b.i.d. 14. Seroquel 25 mg daily. 15. Calcium citrate 500 mg t.i.d. 16. Hydralazine 50 mg t.i.d. 17. Benadryl 50 mg q.6 hours p.r.n. 18. Fentanyl 25 mcg patch q.72 hours. 19. Hydroxyzine 25 mg at bedtime p.r.n. 20. DuoNeb unit dose q.4 hours p.r.n. 21. Percocet 10/325 q.4 hours p.r.n. 22. Zofran 4 mg q.6 hours p.r.n. 23. Zyrtec 10 mg p.r.n. daily. ALLERGIES: Reportedly to chocolates, ciprofloxacin, levofloxacin, morphine, and additional quinolones. SOCIAL HISTORY: The patient is apparently and has been a resident of the [facility] since at least 2013. Her responsible green party appears to be her brother. No additional details are available at this time. PHYSICAL EXAMINATION: VITAL SIGNS: The patient's blood pressure is 140/70, heart rate is 84 and regular, respiratory rate is 18, temperature 97.2, and oxygen saturation 95% on room air. GENERAL: The patient is a well-developed, obese, dysthymic, and somatic-appearing individual, lying in bed with multiple complaints about chest pain, back pain, abdominal pain, and weakness in her legs, but unable to describe details of most of these things. HEAD AND NECK: Reveals normocephalic and atraumatic skull. The sclerae are anicteric. The oropharynx appears to be adequately hydrated. NECK: Without masses and appears to have full range of motion. CHEST: Reveals somewhat diminished, but clear breath sounds throughout. CARDIOVASCULAR: Reveals a regular rhythm without gallops, murmurs, or rubs appreciated. BREASTS: Without dominant masses. ABDOMEN: Somewhat obese with prior scars and a colostomy in the left lower quadrant. EXTREMITIES: Revealed no significant distal edema at this time. The patient complains of tenderness to palpation throughout her body and when she is being assisted to a standing position, she complains of pain from being held. The patient requires much max assist in rising from the bed to standing position and is unable to stand independently at this time. Additional ambulation and mobilization with a walker is not attempted. MENTAL STATUS: The patient's mental status could not be clearly ascertained. She was able to recall certain facts, but could not recall some of her diagnoses and had difficulty recalling aspects of her prior life. Her history is also likely inaccurate with obvious gaps. She stated she was unaware of why she had her abdominal surgeries or why she required a colostomy and indicated she had no history of psychiatric issues, anxiety, or other symptoms and did not mention her prior embolic stroke. LABORATORY AND DIAGNOSTIC DATA: The patient's initial laboratory data included a white count of 4.2, hematocrit of 41.2, MCV of 96, and platelet count of 283,000. There is minimal increase in neutrophils and decrease in lymphocytes with no bands available. Initial chemistry was remarkable for sodium 140, potassium 4.1, chloride 105, bicarbonate 25, BUN 12, creatinine 1.2, and glucose 121. Calcium 9.5. Total bilirubin 0.4. AST 25, ALT 10, and alkaline phosphatase 59. Total CK 88 and MB 2.2. Troponin 0. ProBNP 117. Total protein 7.1. Albumin 3.6. Urinalysis revealed 1+ ketones, negative occult blood, positive nitrites, 2+ leukocyte esterase, 0 to 2 rbc's, 5 to 10 wbc's, occasional epithelial cells, and many bacteria. The initial chest x-ray revealed limited exam with low lung volumes, artifactually exaggerated heart size, and pulmonary vascularity. No focal air space consolidation, pleural effusion, or pneumothorax. Initial electrocardiogram is noted to show some chronic changes that might be compatible with an age indeterminate lateral infarct. IMPRESSION: The patient presents with vague and difficult to characterize complaints of chest pain. Because of her reported severity of pain and the prior history of significant cardiovascular risk factors, congestive heart failure, and apparently history of atrial fibrillation in the past, Cardiology consultation has been requested from Dr. Heath Dolan to further evaluate the possible risk of ischemic event. However at the present time, there is no clear evidence of an acute coronary syndrome. The patient's overall increased weakness that she describes, her poor appetite over several days and the findings of the abnormal urinalysis with significant bacteriuria, raises the possibility of urinary tract infection contributing to this presentation. The patient's overall physical symptoms are difficult to evaluate both in terms of her hypersensitivity to palpation with hyperesthesia and dysesthesia, which appears at least in part to be chronic, as well as her chronic prednisone utilization, which may mask a significant inflammatory response otherwise. The patient has a relatively clear sensorium with what appears to be an element of cognitive deficits and probably an element of pseudodementia this makes a severe infection less likely. Atypical influenza episode should be ruled out, given the fact the patient has been in a locale where there has been recent significant influenza penetration. The possibility of an element of adrenal insufficiency should be considered, given the patient's chronic prednisone therapy which would suppress adrenal function. Most likely the patient has significant exacerbation of chronic depression with somatization and neuropathic changes. She is also already receiving a significant amount of narcotic therapy as well as antidepressants and membrane stabilizing therapy. Given the patient's overall presentation, if an ischemic episode is ruled out and urinary tract infection is treated, there may be a benefit to attempting to taper her narcotic analgesia and the addition or substitution of Cymbalta as an agent for amelioration of both her neuropathic and chronic pain syndrome symptoms. In addition, the patient is on trazodone for sleep along with antihistaminic medications and these appear to be relatively ineffective. Consideration might be given to using a low dose of doxepin either in Silenor category or perhaps a low dose of doxepin in the 10 to 25 mg range to substitute both to improve control over depressive symptoms and to improve her overall sleep disorder. However, all these potential changes will be deferred for the time being since the patient is usually followed by Dr. Henson, and P clinicians and her long-term management should probably be left to them. An attempt will be made to contact her family to further discuss her situation and a determination will be made by Dr. Dolan as to her ischemic risk before she can be returned to the [facility]. Additional evaluation and treatment will be considered depending on the patient's initial response to therapy and initial laboratory findings. Frank Vila M.D. DR: CARL JOB#: [id number] CC: IRISH
[2017-05-27] VITALS: BP 103/59
[2017-05-27] MEDS: cefTRIAXone 1 GM in D5W 55 ML IVPB SCH (00:09)
--- NOTE | 2017-05-27 05:30 | Discharge Summary ---
DATE OF ADMISSION: 05/25/2017 DATE OF DISCHARGE: 05/27/2017 DISCHARGE DIAGNOSES: 1. Atypical chest pain, noncardiac in etiology, suspect multifactorial including chronic pain syndrome exacerbation, anxiety somatization triggered by urinary tract infection. 2. Gram-negative sudeep urinary tract infection, sensitivities pending. 3. Mild volume depletion. 4. Negative Lexiscan for ischemia. 5. Cardiac echocardiogram with ejection fraction of 60% to 65%. 6. History of chronic diastolic congestive heart failure. 7. Chronic pain syndrome. 8. Degenerative joint disease. 9. Gastroesophageal reflux disease. 10. Hyperlipidemia. 11. Hypertension. 12. Hypothyroidism. 13. History of acute embolic stroke, apparently associated with history of atrial fibrillation. 14. Status post hysterectomy. 15. Status post bowel obstruction with permanent colostomy in the setting of multiple periumbilical hernia repairs and colonic vesicular fistula. 16. Sleep disorder. 17. History of lupus, on chronic prednisone therapy. 18. Gait instability with use of front-wheeled walker and assist x1 at baseline. HISTORY OF PRESENT ILLNESS: The patient is a 77-year-old woman with multiple chronic medical illnesses, who presented with complaints of chest pain. Details of the history and physical examination are per the dictation of 05/25/2017. HOSPITAL COURSE: The patient was admitted and examination was unconvincing for cardiac pain, however, the patient was seen in Cardiology consultation by Dr. Heath Dolan and given her poor history and inability to discriminate her symptoms, a cardiac echo was done which revealed no wall motion abnormalities and an ejection fraction estimated in the 60% to 65% range as well as a nuclear medicine Lexiscan which showed no segmental wall motion abnormalities consistent with ischemia. As a result, the probability of the patient having significant cardiac ischemic disease seemed quite low. The patient was found to have a gram-negative sudeep in the urine with positive leukocyte esterase as well as nitrites and 5-10 white cells suggesting possibly urinary tract infection. This is in the setting of the patient who has history of known colonic vesicular fistula, which presumably was repaired when her colostomy was done, but clearly has abnormal bladder anatomy, which would place her at risk for colonization and recurrent urinary tract infection. It seems likely that this may have been the triggering event in terms of the patient's presentation. With gentle intravenous hydration and coverage with ceftriaxone, the patient improved symptomatically very quickly and now feels comfortable returning to the [facility] for further therapy. It was noted she did use a significant amount of narcotic analgesia and also has been using antidepressants, as well as trazodone for sleep as well as antihistamines for sleep. It was felt that as an outpatient, consideration might be given to using Cymbalta with tapering of the gabapentin for help in controlling her chronic pain syndrome if this has not been tried previously in this patient and that also consideration might be given to using doxepin in low doses instead of trazodone for sleep as well, as adjunctive therapy for the patient's depression. The patient also is obese and would benefit from some attempted weight loss if at all possible. At the time of discharge, the patient will resume her normal medications at the facility and will also be discharged on a course of intravenous ceftriaxone to be completed over five days total. Should the patient's urine cultures return in the interim and sensitivities appear compatible with use of oral antibiotics that information will be transmitted to her primary care team when it is available. An attempt was made to call the patient's brother regarding her hospitalization, but at this point, no return call has been received. Frank Vila M.D. DR: JENNIFER JOB#: [id number] CC: IRISH
[2017-05-27 08:00] VITALS: BP 151/65
[2017-05-27] MEDS: Bisacodyl EC 5mg tab ORAL SCH (09:01)
[2017-05-27] MEDS: Docusate 100mg cap ORAL SCH ×2 (09:02→18:15)
[2017-05-27] MEDS: Xarelto 10mg tab ORAL SCH (09:02)
[2017-05-27] MEDS: HydrALAZINE 10mg Tab ORAL SCH ×3 (09:03→18:15)
[2017-05-27 12:00] VITALS: BP 153/63
[2017-05-27 16:00] VITALS: BP 120/54
--- NOTE | 2017-05-27 16:45 | Geriatric Progress Note ---
Assessment/Plan Problems: (1) UTI (urinary tract infection) (2) Chronic pain associated with significant psychosocial dysfunction (3) Anxious depression (4) Paranoia (psychosis) (5) Atypical chest pain Assessment/Plan Patient physically improved, now more anxious re d/c plans. D/c planned in am. Discussed with: patient, family - brother, hospital staff Subjective Interval Events Patient slightly anxious about d/c plans. Apparently transfer expected tomorrow. No further chest pain or new sxs. Brother at bedside. Review course, tx plans. Constitutional: Denies: pain Respiratory: Denies: shortness of breath Cardiovascular: Denies: chest pain, palpitations Gastrointestinal/Abdominal: Denies: abdominal pain Genitourinary: Denies: dysuria Geriatric Geriatric Last 24 Hour Vital Signs Date Time Temp Pulse Resp B/P (MAP) Pulse Ox O2 Delivery O2 Flow Rate FiO2 05/27/17 12:31 153/63 05/27/17 12:00 96.8 84 20 153/63 99 Room Air 05/27/17 12:00 69 05/27/17 09:03 151/65 05/27/17 09:02 78 151/65 05/27/17 08:00 78 05/27/17 08:00 97.7 83 18 151/65 94 Room Air 05/27/17 04:00 69 05/27/17 00:00 97.7 89 16 103/59 95 Room Air 05/27/17 00:00 91 05/26/17 20:00 Room Air 05/26/17 20:00 97 05/26/17 20:00 97.3 95 16 123/64 95 05/26/17 17:57 122/66 Intake and Output 05/26/17 05/27/17 19:00 07:00 Intake Total 500 ml 295 ml Output Total 600 ml Balance 500 ml -305 ml Intake Oral 500 ml 240 ml IV Total 55 ml Output Urine Total 600 ml # Voids 3 Current Medications Medications (Trade) Dose Ordered Sig/Osorio Route PRN Reason Start Time Stop Time Status Last Admin Dose Admin Bisacodyl (Dulcolax) 10 mg DAILY ORAL 05/25/17 09:00 06/24/17 08:59 05/27/17 09:01 Calcium Citrate (Olman-Citrate) 475 mg TID ORAL 05/27/17 09:30 06/26/17 09:29 05/27/17 12:31 Ceftriaxone Sodium 1 gm/ Dextrose 55 ml @ 110 mls/hr Q24H IVPB 05/26/17 00:00 06/02/17 00:00 05/27/17 00:09 Diphenhydramine HCl (Benadryl) 50 mg Q6H PRN ORAL Itching 05/25/17 04:45 06/24/17 04:44 05/27/17 14:37 Docusate Sodium (Colace) 200 mg TWICE A DAY ORAL 05/25/17 09:00 06/24/17 08:59 05/27/17 09:02 Escitalopram Oxalate (Lexapro) 30 mg DAILY ORAL 05/25/17 09:00 06/24/17 08:59 05/27/17 09:01 Gabapentin (Neurontin) 300 mg BEDTIME ORAL 05/25/17 01:30 06/24/17 01:29 05/26/17 20:39 Hydralazine HCl (Apresoline) 15 mg TID ORAL 05/25/17 09:00 06/24/17 08:59 05/27/17 12:31 Hydrochlorothiazide (Hydrodiuril) 50 mg 3XW ORAL 05/26/17 09:00 06/25/17 08:59 05/26/17 10:11 Labetalol HCl (Normodyne) 100 mg DAILY ORAL 05/25/17 09:00 06/24/17 08:59 05/27/17 09:02 Levothyroxine Sodium (Synthroid) 75 mcg DAILY@0630 ORAL 05/25/17 06:30 06/24/17 06:29 05/27/17 06:44 Oxycodone/ Acetaminophen (Percocet 10/325) 1 tab Q4H PRN ORAL Moderate Pain (Pain Scale 4-6) 05/25/17 19:00 06/01/17 18:59 05/27/17 13:30 Pantoprazole (Protonix) 40 mg ACBREAKFAST ORAL 05/25/17 06:30 06/24/17 06:29 05/27/17 06:44 Polyethylene Glycol (Miralax) 17 gm DAILY PRN ORAL Constipation 05/24/17 23:00 06/23/17 22:59 Potassium Chloride (K-Dur) 20 meq DAILY ORAL 05/25/17 09:00 06/24/17 08:59 05/27/17 09:02 Prednisone (predniSONE) 10 mg DAILY ORAL 05/25/17 09:00 06/24/17 08:59 05/27/17 09:02 Quetiapine Fumarate (SEROquel) 25 mg Q12HR ORAL 05/25/17 09:00 06/24/17 08:59 05/27/17 09:02 Rivaroxaban (Xarelto) 20 mg DAILY ORAL 05/25/17 09:00 06/24/17 08:59 05/27/17 09:02 Trazodone HCl (Desyrel) 200 mg BEDTIME ORAL 05/25/17 01:30 06/24/17 01:29 05/26/17 20:39 Vitamin B Complex (Vitamin B Complex) 1 ea DAILY ORAL 05/25/17 09:00 06/24/17 08:59 05/27/17 09:02 Height (Feet): 5 Height (Inches): 1.00 Weight (Pounds): 150 General Appearance: alert - anxious Head: normocephalic, atraumatic Eyes: bilateral anicteric ENT: normal voice Neck: full range of motion, no mass Respiratory: lungs clear Cardiovascular: regular rate, rhythm Gastrointestinal: normal bowel sounds, non tender, soft, no mass, no organomegaly Musculoskeletal: no calf tenderness Edema: no edema noted Generalized Neurologic: no new focality KEILA KULKARNI May 27, 2017 16:44
[2017-05-27 20:00] VITALS: BP 108/45
[2017-05-27] MEDS: TraZODone 100mg tab ORAL SCH (21:33)
[2017-05-28] VITALS: BP 144/51
[2017-05-28] MEDS: cefTRIAXone 1 GM in D5W 55 ML IVPB SCH (00:02)
[2017-05-28 04:00] VITALS: BP 144/63
[2017-05-28 08:00] VITALS: BP 131/64
[2017-05-28] MEDS: Xarelto 10mg tab ORAL SCH (09:09)
[2017-05-28] MEDS: Docusate 100mg cap ORAL SCH (09:09)
[2017-05-28] MEDS: Bisacodyl EC 5mg tab ORAL SCH (09:09)
[2017-05-28 09:10] VITALS: BP 131/64
[2017-05-28] MEDS: HydrALAZINE 10mg Tab ORAL SCH (09:10)
[2017-05-28] MEDS ORDERED: Tubing IV Secondary IV ONE (11:29)
[2017-05-29] MEDS ORDERED: cefTRIAXone 1 GM in NS 55 ML IVPB SCH ×2
--- NOTE | 2017-05-29 10:07 | Discharge Summary ---
Discharge Summary Hospital Course Date of Admission May 25, 2017 at 18:54 Date of Discharge May 28, 2017 at 11:30 Admitting Diagnosis acs HPI Sammie Mcfarlane is a 77 year old female who was admitted on May 25, 2017 at 18:54 for Acute Coronary Syndrome Hospital Course Addendum: Patient was anxious about discharge. Patient was discharged to SNF on 05/28/17. --I have been assigned to complete a DC summary on this account, I was not involved with the patient management.--JUNE Mahajan-- Discharge Discharge Disposition Patient was discharged to SNF/Subacute Facility(03) Discharge Diagnoses: Maryuri Jimenez NP May 29, 2017 10:07
--- NOTE | 2017-06-02 13:51 | Cardiology Report ---
APPROVED REPORT EKG Measurement Heart [id number] [place] 176P47 [id number] Normal sinus rhythm Lateral infarct, age undetermined Abnormal ECG
--- NOTE | 2017-06-02 13:53 | Cardiology Report ---
APPROVED REPORT EKG Measurement Heart [id number] [place] 160P48 [id number] Sinus tachycardia Low voltage QRS Inferior infarct, age undetermined Abnormal ECG
--- NOTE | 2017-06-02 14:01 | Cardiology Report ---
APPROVED REPORT EKG Measurement Heart [id number] [place] 172P [id number] Suspect arm lead reversal, interpretation assumes no reversal Normal sinus rhythm Possible Lateral infarct, age undetermined Inferior infarct, age undetermined Abnormal ECG
== END 2017-05-28 11:30 | DRG 690 ==
LOC: EDBD 16:22 → EMR 17:00 → 2E 17:15 → INTOOBSV 17:15 → EDBEDREQ 17:28 → 2E 20:07 → OBSVTOIN 05-25 18:54
DX: N39.0 Urinary tract infection, site not specified (principal); M32.9 Systemic lupus erythematosus, unspecified; I11.0 Hypertensive heart disease with heart failure; I50.32 Chronic diastolic (congestive) heart failure; E11.9 Type 2 diabetes mellitus without complications; B96.89 Other specified bacterial agents as the cause of diseases classified elsewhere; F32.9 Major depressive disorder, single episode, unspecified; R07.89 Other chest pain; E03.9 Hypothyroidism, unspecified; F41.8 Other specified anxiety disorders; F45.41 Pain disorder exclusively related to psychological factors; M51.36 Other intervertebral disc degeneration, lumbar region; M19.90 Unspecified osteoarthritis, unspecified site; Z86.73 Personal history of transient ischemic attack (TIA), and cerebral infarction without residual deficits; K21.9 Gastro-esophageal reflux disease without esophagitis; G89.4 Chronic pain syndrome; Z43.3 Encounter for attention to colostomy; G47.9 Sleep disorder, unspecified; R26.81 Unsteadiness on feet; E66.9 Obesity, unspecified; Z79.01 Long term (current) use of anticoagulants; F22 Delusional disorders
CPT/HCPCS: 36415; 51702; 71045; 78452; 80053; 81001; 82550; 82553; 83036; 83880; 84484; 85007; 85025; 86710; 87081; 87086; 87181; 93005; 93017; 93306; 99285; J8499

== ENCOUNTER 2017-06-17 16:09 | Observation (INO) | payer MEDICARE, BC ==
[~2017-06-17] VITALS: Ht 162.6 cm; Wt 68.0 kg
[~2017-06-17 16:09] MED LIST: B COMPLEX1 EACH ORAL; BENADRYL25 MG ORAL; BISACODYL5 MG ORAL; CALCIUM CITRAT250 M1 PO; CEFTRIAXONE1 G2 IV; COLACE100 MG ORAL; FENTANYL1 EACH TDERMAL; HYDRALAZINE HCL10 MG ORAL; HYDROCHLOROTHIA50 MG ORAL; LABETALOL HCL100 MG ORAL; LEXAPRO10 MG ORAL; MIRALAX17 G2 ORAL; NEURONTIN100 MG ORAL; PANTOPRAZOLE SO40 MG ORAL; POTASSIUM CHLO20 ME1 ORAL; PREDNISONE10 MG ORAL; SENNA8.6 M2 PO; SEROQUEL25 MG ORAL; SYNTHROID75 MCG ORAL; TRAZODONE HCL100 MG ORAL; XARELTO20 MG ORAL
[2017-06-17] MEDS ORDERED: Sodium Chloride 500ML 500 ML IV ONE (16:17)
[2017-06-17] MEDS ORDERED: ACETAMINOPHEN325 M1 ORAL (16:22)
[2017-06-17] MEDS ORDERED: fentaNYL 100 mcg/2 mL IV ONE (16:30)
[2017-06-17 16:39] LABS: BASOPHILS % (AUTO) 0.3 % (0.0-2.0); EOSINOPHILS % (AUTO) 2.9 % (0.0-3.0); HEMATOCRIT 42.4 % (37.0-47.0); HEMOGLOBIN 14.2 G/DL (12.0-16.0); LYMPHOCYTES % (AUTO) 7.4 % (20.0-45.0); MEAN CORPUSCULAR VOLUME 96 FL (80-99); MONOCYTES % (AUTO) 9.2 % (1.0-10.0); NEUTROPHILS % (AUTO) 80.1 % (45.0-75.0); PLATELET COUNT 246 K/UL (150-450); RED BLOOD COUNT 4.41 M/UL (4.20-5.40); RED CELL DISTRIBUTION WIDTH 13.6 % (11.6-14.8)
[2017-06-17 16:43] LABS: ANION GAP 7 mmol/L (5-15); BLOOD UREA NITROGEN 20 mg/dL (7-18); CARBON DIOXIDE 28 MMOL/L (21-32); CHLORIDE 103 MMOL/L (98-107); POTASSIUM 3.8 MMOL/L (3.5-5.1); SODIUM 138 MMOL/L (136-145)
[2017-06-17 16:47] VITALS: BP 122/60
--- NOTE | 2017-06-17 16:57 | Emergency Room Report ---
History of Present Illness General Chief Complaint: Chest Pain Source: Patient Present Illness HPI 77-year-old female presents ED for evaluation. Patient presenting with chest pain. Patient coming from group home. Chest pain started at noon today. Started at rest. Sharp, 7/10 midsternal, radiating to the left chest. Denies shortness of breath. Patient was given aspirin and nitroglycerin x3 by EMS with no relief. Denies fevers chills. Denies cough. No other aggravating relieving factors. Denies any other associated symptoms Allergies: Coded Allergies: CIPROFLOXACIN (Unverified Allergy, Unknown, 05/24/17) LEVOFLOXACIN (Unverified Allergy, Unknown, 05/24/17) MORPHINE (Verified Allergy, Unknown, RASH, 05/10/10) QUINOLONES (Unverified Allergy, Unknown, 05/24/17) Uncoded Allergies: CHOCOLATE (Allergy, Unknown, RASH, 05/10/10) Patient History Past Medical History: HTN, CVA/TIA Past Surgical History: none Pertinent Family History: none Social History: Denies: smoking, alcohol use, drug use Now: No Immunizations: UTD Reviewed Nursing Documentation: PMH: Agreed, PSxH: Agreed Nursing Documentation-PMH Hx Cardiac Problems: Yes Hx Hypertension: Yes Hx Cancer: No Hx Gastrointestinal Problems: No - colostomy,gerd,sbo Hx Neurological Problems: No - hypothyroid,lupus Hx Cerebrovascular Accident: Yes Review of Systems All Other Systems: negative except mentioned in HPI Physical Exam Vital Signs Date Time Temp Pulse Resp B/P (MAP) Pulse Ox O2 Delivery O2 Flow Rate FiO2 06/17/17 16:06 98.2 84 16 122/60 98 Room Air 98.2 Sp02 EP Interpretation: reviewed, normal General Appearance: alert, GCS 15, non-toxic, mild distress Head: normocephalic, atraumatic Eyes: bilateral eye normal inspection, bilateral eye PERRL ENT: hearing grossly normal, normal pharynx, no angioedema, normal voice Neck: full range of motion, supple/symm/no masses Respiratory: lungs clear, normal breath sounds, speaking full sentences, other - reproducible chest wall pain Cardiovascular #1: regular rate, rhythm, no edema Cardiovascular #2: 2+ carotid (R), 2+ carotid (L), 2+ radial (R), 2+ radial (L) , 2+ dorsalis pedis (R), 2+ dorsalis pedis (L) Gastrointestinal: normal bowel sounds, non tender, soft, non-distended, no guarding, no rebound Rectal: deferred Genitourinary: normal inspection, no CVA tenderness Musculoskeletal: back normal, gait/station normal, normal range of motion, non- tender Neurologic: alert, oriented x3, responsive, motor strength/tone normal, sensory intact, speech normal Psychiatric: judgement/insight normal, memory normal, no suicidal/homicidal ideation, anxious Reflexes: 3+ bicep (R), 3+ bicep (L), 3+ tricep (R), 3+ tricep (L), 3+ knee (R) , 3+ knee (L) Skin: normal color, no rash, warm/dry, well hydrated Lymphatic: no adenopathy Medical Decision Making Diagnostic Impression: Primary Impression: Atypical chest pain ER Course Hospital Course 77 yo F presents to ED c/o chest pain Differential diagnoses include: [place]/unstable angina, contusion, muscle strain, PTX, rib fracture Clinical course Patient placed on stretcher. on pressfitter. After initial history and physical I ordered labs, EKG, chest x-ray, fentanyl labs reviewed- no leukocytosis, hemoglobin/hematocrit stable, electrolytes okay , troponin 0.001 EKG-normal sinus rhythm no acute ischemic changes interpreted by me Chest x-ray- unremarkable Reviewed EMR. On last visit patient was evaluated by cardiology. believed the chest pain was atypical. Today the pain does appear to be muscular. However patient's age and significant risk factors I believe she should be admitted for ACS rule out Dr Dolan contacted for consultation Case discussed with Dr. Vila and he agreed to accept the patient to his service for further care and support I. I feel this is a highly complex case requiring extensive working including EKG/Rhythm strip, Xray/CT/US, Blood/urine lab work, repeat exams while in ED, and administration of strong opiates/narcotics for pain control, admission to hospital or close patient follow up. Diagnosis - ACS, atypical chest pain admitted to telemetry in serious condition Labs Test 06/17/17 16:20 White Blood Count 12.0 K/UL (4.8-10.8) Red Blood Count 4.41 M/UL (4.20-5.40) Hemoglobin 14.2 G/DL (12.0-16.0) Hematocrit 42.4 % (37.0-47.0) Mean Corpuscular Volume 96 FL (80-99) Mean Corpuscular Hemoglobin 32.1 PG (27.0-31.0) Mean Corpuscular Hemoglobin Concent 33.5 G/DL (32.0-36.0) Red Cell Distribution Width 13.6 % (11.6-14.8) Platelet Count 246 K/UL (150-450) Mean Platelet Volume 7.9 FL (6.5-10.1) Neutrophils (%) (Auto) 80.1 % (45.0-75.0) Lymphocytes (%) (Auto) 7.4 % (20.0-45.0) Monocytes (%) (Auto) 9.2 % (1.0-10.0) Eosinophils (%) (Auto) 2.9 % (0.0-3.0) Basophils (%) (Auto) 0.3 % (0.0-2.0) Sodium Level 138 MMOL/L (136-145) Potassium Level 3.8 MMOL/L (3.5-5.1) Chloride Level 103 MMOL/L (98-107) Carbon Dioxide Level 28 MMOL/L (21-32) Anion Gap 7 mmol/L (5-15) Blood Urea Nitrogen 20 mg/dL (7-18) Creatinine 1.0 MG/DL (0.55-1.30) Estimat Glomerular Filtration Rate mL/min (>60) Glucose Level 104 MG/DL (74-106) Calcium Level 9.0 MG/DL (8.5-10.1) Total Bilirubin 0.7 MG/DL (0.2-1.0) Aspartate Amino Transf (AST/SGOT) 23 U/L (15-37) Alanine Aminotransferase (ALT/SGPT) 10 U/L (12-78) Alkaline Phosphatase 54 U/L (46-116) Total Creatine Kinase 53 U/L (26-308) Creatine Kinase MB 1.1 NG/ML (0.0-3.6) Creatine Kinase MB Relative Index 2.0 Troponin I 0.001 ng/mL (0.000-0.056) Pro-B-Type Natriuretic Peptide 171 pg/mL (0-125) Total Protein 7.0 G/DL (6.4-8.2) Albumin 3.3 G/DL (3.4-5.0) Globulin 3.7 g/dL Albumin/Globulin Ratio 0.9 (1.0-2.7) EKG Diagnostic Results Rate: normal Rhythm: NSR ST Segments: no acute changes ASA given to the pt in ED: No - given by ems Rhythm Strip Diag. Results EP Interpretation: yes Rhythm: NSR, no PVC's, no ectopy Chest X-Ray Diagnostic Results Chest X-Ray Diagnostic Results : Chest X-Ray Ordered: Yes # of Views/Limited/Complete: 1 View Indication: Chest Pain EP Interpretation: Yes Interpretation: no consolidation, no effusion, no pneumothorax, no acute cardiopulmonary disease Impression: No acute disease Electronically Signed by: Electronically signed by Narciso Sevilla MD Last Vital Signs Date Time Temp Pulse Resp B/P (MAP) Pulse Ox O2 Delivery O2 Flow Rate FiO2 06/17/17 16:47 84 16 Room Air 06/17/17 16:47 98.7 122/60 98 98.7 Status: improved Disposition: ADMITTED INPATIENT Condition: Serious Referrals: ARNOLDO JEFFERSON (PCP) NARCISO SEVILLA M.D. Jun 17, 2017 16:56
[2017-06-17 17:11] LABS: ALANINE AMINOTRANSFERASE 10 U/L (12-78); ALBUMIN 3.3 G/DL (3.4-5.0); ALBUMIN/GLOBULIN RATIO 0.9 (1.0-2.7); ALKALINE PHOSPHATASE 54 U/L (46-116); ASPARTATE AMINO TRANSFERASE 23 U/L (15-37); BILIRUBIN,TOTAL 0.7 MG/DL (0.2-1.0); CKMB 1.1 NG/ML (0.0-3.6); CREATINE KINASE 53 U/L (26-308)
[2017-06-17 17:54] VITALS: BP 114/56
[2017-06-17 18:43] VITALS: BP 132/52
[2017-06-17 19:42] VITALS: BP 105/42
[2017-06-17 20:45] VITALS: BP 134/58
[2017-06-17] MEDS ORDERED: Miralax 17gm pkt ORAL PRN (21:00)
[2017-06-17] MEDS ORDERED: Naloxone 0.4mg/ml Inj IV PRN (22:00)
[2017-06-17] MEDS: TraZODone 100mg tab ORAL SCH (22:24)
[2017-06-17] MEDS: HydrALAZINE 10mg Tab ORAL SCH (22:33)
[2017-06-17] MEDS ORDERED: fentaNYL Destruction MISC SCH (23:00)
[2017-06-18] VITALS (7 sets, daily range): BP systolic 107–128; BP diastolic 51–70
[2017-06-18] MEDS: HydrALAZINE 10mg Tab ORAL SCH ×3 (06:00→22:00)
[2017-06-18] MEDS: Docusate 100mg cap ORAL SCH ×2 (08:18→17:09)
[2017-06-18] MEDS: Tums 500mg ORAL SCH ×3 (08:18→17:09)
[2017-06-18 09:40] LABS: ALANINE AMINOTRANSFERASE 18 U/L (12-78); ALBUMIN 3.3 G/DL (3.4-5.0); ALKALINE PHOSPHATASE 51 U/L (46-116); ANION GAP 11 mmol/L (5-15); ASPARTATE AMINO TRANSFERASE 31 U/L (15-37); BILIRUBIN,TOTAL 0.7 MG/DL (0.2-1.0); BLOOD UREA NITROGEN 10 mg/dL (7-18); CALCIUM 8.3 MG/DL (8.5-10.1); CARBON DIOXIDE 23 MMOL/L (21-32); CHLORIDE 101 MMOL/L (98-107); CREATINE KINASE 149 U/L (26-308); CREATININE 0.3 MG/DL (0.55-1.30); POTASSIUM 4.9 MMOL/L (3.5-5.1); SODIUM 135 MMOL/L (136-145)
[2017-06-18 09:44] LABS: BASOPHILS % (AUTO) 0.4 % (0.0-2.0); EOSINOPHILS % (AUTO) 0.9 % (0.0-3.0); HEMATOCRIT 42.6 % (37.0-47.0); HEMOGLOBIN 13.8 G/DL (12.0-16.0); LYMPHOCYTES % (AUTO) 16.5 % (20.0-45.0); MEAN CORPUSCULAR VOLUME 99 FL (80-99); MONOCYTES % (AUTO) 8.8 % (1.0-10.0); NEUTROPHILS % (AUTO) 73.3 % (45.0-75.0); PLATELET COUNT 225 K/UL (150-450); RED BLOOD COUNT 4.29 M/UL (4.20-5.40); RED CELL DISTRIBUTION WIDTH 14.4 % (11.6-14.8); WHITE BLOOD COUNT 6.6 K/UL (4.8-10.8)
[2017-06-18 10:00] LABS: APPEARANCE,URINE CLEAR; BILIRUBIN, URINE NEGATIVE (NEGATIVE); GLUCOSE, URINE (UA) NEGATIVE (NEGATIVE); KETONES,URINE 2+ (NEGATIVE); LEUKOCYTE ESTERASE ,URINE 1+ (NEGATIVE); NITRITE,URINE NEGATIVE (NEGATIVE); PH,URINE 5 (4.5-8.0); PROTEIN,URINE NEGATIVE (NEGATIVE); UROBILINOGEN,URINE NORMAL MG/DL (0.0-1.0)
[2017-06-18 10:19] LABS: COLOR,URINE YELLOW
--- NOTE | 2017-06-18 10:34 | Diagnostic Imaging Report ---
Indication: Chest pain Technique: XRAY Chest 1v Comparison: 05/26/2017 Findings: Heart size and mediastinal contours are stable. Calcifications again noted in the bilateral hilar regions. There is unchanged elevation of the right hemidiaphragm. There is patchy atelectasis at the left base. Otherwise, there is no focal airspace consolidation, pleural effusion or pneumothorax. No acute osseous abnormality seen. Oval opacities projecting over the left lung likely external to the patient (possibly buttons). Impression: Patchy atelectasis at the left base. Calcifications in the bilateral hilar regions, possibly calcified lymph nodes.
--- NOTE | 2017-06-18 12:21 | Geriatric Progress Note ---
Subjective Interval Events Patient returns with c/o L chest pain, similar to prior admission. Previous admission with negative Lexiscan, unremarkable echo. Re-evaluation by cardiology pending. Currently patient c/o severe pain over entire L side, but concentrated in L hip. Co tenderness to palpation over entire chest B. Also c/o tenderness throughout. AROM does not elicit c/o pain. Troponins negative. EKG not indicative of acute changes. Discussed with dtr. Message left for brother. Discussed with ECP [employer] who follows at [facility]. Cardiology eval pending. CT chest done, result pending. Will add Cymbalta 20mg for neuropathic/chronic pain. Recommend psychoactive titration, decrease narcotics in future. Expect d/c from observation back to [facility] this p.m. Dictated #[id number]. Geriatric Geriatric Last 24 Hour Vital Signs Date Time Temp Pulse Resp B/P (MAP) Pulse Ox O2 Delivery O2 Flow Rate FiO2 06/18/17 11:59 97.9 72 18 110/51 93 Room Air 97.9 06/18/17 08:22 83 128/58 06/18/17 08:00 82 06/18/17 07:43 97.7 83 18 128/58 91 Room Air 97.7 06/18/17 06:00 115/54 06/18/17 04:00 79 06/18/17 04:00 97.5 88 12 115/54 92 Room Air 97.5 06/18/17 00:00 86 06/18/17 00:00 99.9 89 20 114/70 93 Room Air 99.9 06/17/17 22:33 134/58 06/17/17 20:45 98.2 89 18 134/58 93 Room Air 98.2 06/17/17 20:07 98.7 86 13 105/42 95 Room Air 98.7 06/17/17 19:42 86 13 105/42 95 Room Air 06/17/17 18:43 98.7 16 132/52 98 Room Air 98.7 06/17/17 17:54 98.7 16 114/56 98 Room Air 98.7 06/17/17 17:21 98.7 06/17/17 17:04 98.7 06/17/17 16:47 84 16 Room Air 06/17/17 16:47 98.7 16 122/60 98 Room Air 98.7 06/17/17 16:32 98.2 06/17/17 16:06 98.2 84 16 122/60 98 Room Air 98.2 Intake and Output 06/17/17 06/18/17 19:00 07:00 Intake Total 0 ml 170 ml Output Total 160 ml Balance 0 ml 10 ml Intake Oral 0 ml 170 ml Output Stool Total 160 ml # Voids 1 Laboratory Tests Test 06/17/17 16:20 06/17/17 19:45 06/18/17 00:15 06/18/17 08:45 White Blood Count 12.0 K/UL (4.8-10.8) H Red Blood Count 4.41 M/UL (4.20-5.40) Hemoglobin 14.2 G/DL (12.0-16.0) Hematocrit 42.4 % (37.0-47.0) Mean Corpuscular Volume 96 FL (80-99) Mean Corpuscular Hemoglobin 32.1 PG (27.0-31.0) H Mean Corpuscular Hemoglobin Concent 33.5 G/DL (32.0-36.0) Red Cell Distribution Width 13.6 % (11.6-14.8) Platelet Count 246 K/UL (150-450) Mean Platelet Volume 7.9 FL (6.5-10.1) Neutrophils (%) (Auto) 80.1 % (45.0-75.0) H Lymphocytes (%) (Auto) 7.4 % (20.0-45.0) L Monocytes (%) (Auto) 9.2 % (1.0-10.0) Eosinophils (%) (Auto) 2.9 % (0.0-3.0) Basophils (%) (Auto) 0.3 % (0.0-2.0) Sodium Level 138 MMOL/L (136-145) Potassium Level 3.8 MMOL/L (3.5-5.1) Chloride Level 103 MMOL/L (98-107) Carbon Dioxide Level 28 MMOL/L (21-32) Anion Gap 7 mmol/L (5-15) Blood Urea Nitrogen 20 mg/dL (7-18) H Creatinine 1.0 MG/DL (0.55-1.30) Estimat Glomerular Filtration Rate mL/min (>60) Glucose Level 104 MG/DL (74-106) Calcium Level 9.0 MG/DL (8.5-10.1) Total Bilirubin 0.7 MG/DL (0.2-1.0) Aspartate Amino Transf (AST/SGOT) 23 U/L (15-37) Alanine Aminotransferase (ALT/SGPT) 10 U/L (12-78) L Alkaline Phosphatase 54 U/L (46-116) Total Creatine Kinase 53 U/L (26-308) Creatine Kinase MB 1.1 NG/ML (0.0-3.6) Creatine Kinase MB Relative Index 2.0 Troponin I 0.001 ng/mL (0.000-0.056) 0.000 ng/mL (0.000-0.056) Pro-B-Type Natriuretic Peptide 171 pg/mL (0-125) H Total Protein 7.0 G/DL (6.4-8.2) Albumin 3.3 G/DL (3.4-5.0) L Globulin 3.7 g/dL Albumin/Globulin Ratio 0.9 (1.0-2.7) L Urine Opiates Screen Negative (NEGATIVE) Urine Barbiturates Screen Negative (NEGATIVE) Phencyclidine (PCP) Screen Negative (NEGATIVE) Urine Amphetamines Screen Negative (NEGATIVE) Urine Benzodiazepines Screen Negative (NEGATIVE) Urine Cocaine Screen Negative (NEGATIVE) Urine Marijuana (THC) Screen Negative (NEGATIVE) Erythrocyte Sedimentation Rate 12 MM/HR (0-30) C-Reactive Protein, Quantitative 3.8 mg/dL (0.00-0.90) H Urine Color Yellow Urine Appearance Clear Urine pH 5 (4.5-8.0) Urine Specific [place] 1.020 (1.005-1.035) Urine Protein Negative (NEGATIVE) Urine Glucose (UA) Negative (NEGATIVE) Urine Ketones 2+ (NEGATIVE) H Urine Occult Blood Negative (NEGATIVE) Urine Nitrite Negative (NEGATIVE) Urine Bilirubin Negative (NEGATIVE) Urine Urobilinogen Normal MG/DL (0.0-1.0) Urine Leukocyte Esterase 1+ (NEGATIVE) H Urine RBC 0-2 /HPF (0 - 2) Urine WBC 2-4 /HPF (0 - 2) Urine Squamous Epithelial Cells Few /LPF (NONE/OCC) Urine Bacteria Few /HPF (NONE) Test 06/18/17 08:55 White Blood Count 6.6 K/UL (4.8-10.8) Red Blood Count 4.29 M/UL (4.20-5.40) Hemoglobin 13.8 G/DL (12.0-16.0) Hematocrit 42.6 % (37.0-47.0) Mean Corpuscular Volume 99 FL (80-99) Mean Corpuscular Hemoglobin 32.1 PG (27.0-31.0) H Mean Corpuscular Hemoglobin Concent 32.4 G/DL (32.0-36.0) Red Cell Distribution Width 14.4 % (11.6-14.8) Platelet Count 225 K/UL (150-450) Mean Platelet Volume 8.1 FL (6.5-10.1) Neutrophils (%) (Auto) 73.3 % (45.0-75.0) Lymphocytes (%) (Auto) 16.5 % (20.0-45.0) L Monocytes (%) (Auto) 8.8 % (1.0-10.0) Eosinophils (%) (Auto) 0.9 % (0.0-3.0) Basophils (%) (Auto) 0.4 % (0.0-2.0) Sodium Level 135 MMOL/L (136-145) L Potassium Level 4.9 MMOL/L (3.5-5.1) Chloride Level 101 MMOL/L (98-107) Carbon Dioxide Level 23 MMOL/L (21-32) Anion Gap 11 mmol/L (5-15) Blood Urea Nitrogen 10 mg/dL (7-18) Creatinine 0.3 MG/DL (0.55-1.30) #L Estimat Glomerular Filtration Rate mL/min (>60) Glucose Level 103 MG/DL (74-106) Calcium Level 8.3 MG/DL (8.5-10.1) L Total Bilirubin 0.7 MG/DL (0.2-1.0) Aspartate Amino Transf (AST/SGOT) 31 U/L (15-37) Alanine Aminotransferase (ALT/SGPT) 18 U/L (12-78) Alkaline Phosphatase 51 U/L (46-116) Total Creatine Kinase 149 U/L (26-308) Troponin I 0.000 ng/mL (0.000-0.056) Total Protein 6.5 G/DL (6.4-8.2) Albumin 3.3 G/DL (3.4-5.0) L Globulin 3.2 g/dL Albumin/Globulin Ratio 1.0 (1.0-2.7) Current Medications Medications (Trade) Dose Ordered Sig/Osorio Route PRN Reason Start Time Stop Time Status Last Admin Dose Admin Acetaminophen (Tylenol) 650 mg Q4H PRN ORAL Mild Pain/Temp > 100.5 06/17/17 21:00 07/17/17 20:59 06/18/17 08:22 Calcium Carbonate (Tums) 500 mg TID ORAL 06/18/17 09:00 07/18/17 08:59 06/18/17 08:18 Diphenhydramine HCl (Benadryl) 50 mg Q6H PRN ORAL Itching 06/17/17 21:00 07/17/17 20:59 06/17/17 22:25 Docusate Sodium (Colace) 200 mg TWICE A DAY ORAL 06/18/17 09:00 07/18/17 08:59 06/18/17 08:18 Duloxetine HCl (Cymbalta) 20 mg DAILY ORAL 06/18/17 12:00 07/18/17 11:59 Escitalopram Oxalate (Lexapro) 30 mg DAILY ORAL 06/18/17 09:00 07/18/17 08:59 06/18/17 08:18 Fentanyl (Duragesic) 1 patch Q72H TDERMAL 06/17/17 23:00 06/24/17 22:59 06/17/17 23:06 Gabapentin (Neurontin) 300 mg BEDTIME ORAL 06/17/17 22:30 07/17/17 22:29 06/17/17 22:25 Hydralazine HCl (Apresoline) 15 mg Q8HR ORAL 06/17/17 22:30 07/17/17 22:29 06/17/17 22:33 Hydrochlorothiazide (Hydrodiuril) 50 mg 3XW ORAL 06/18/17 09:00 07/18/17 08:59 06/18/17 08:22 Labetalol HCl (Normodyne) 100 mg DAILY ORAL 06/18/17 09:00 07/18/17 08:59 06/18/17 08:22 Levothyroxine Sodium (Synthroid) 75 mcg ACBREAKFAST ORAL 06/18/17 06:30 07/18/17 06:29 06/18/17 05:48 Miscellaneous Medication (fentaNYL Destruction) 1 ea Q72H MISC 06/17/17 23:00 07/17/17 22:59 06/17/17 23:07 Naloxone HCl (Narcan) 0.1 mg PRN IV Sedation scale 3 or 4 06/17/17 22:00 06/24/17 21:59 Pantoprazole (Protonix) 40 mg DAILY ORAL 06/18/17 09:00 07/18/17 08:59 06/18/17 08:21 Polyethylene Glycol (Miralax) 17 gm DAILYPRN PRN ORAL Constipation 06/17/17 21:00 07/17/17 20:59 Potassium Chloride (K-Dur) 20 meq DAILY ORAL 06/18/17 09:00 07/18/17 08:59 06/18/17 08:18 Prednisone (predniSONE) 10 mg DAILY ORAL 06/18/17 09:00 07/18/17 08:59 06/18/17 08:22 Quetiapine Fumarate (SEROquel) 25 mg Q12HR ORAL 06/17/17 22:30 07/17/17 22:29 06/18/17 08:22 Rivaroxaban (Xarelto) 20 mg QPM ORAL 06/18/17 16:30 07/18/17 16:29 Sennosides (Senokot) 2 tab QHS ORAL 06/18/17 21:00 07/18/17 20:59 Trazodone HCl (Desyrel) 200 mg BEDTIME ORAL 06/17/17 22:30 07/17/17 22:29 06/17/17 22:24 Vitamin B Complex (Vitamin B Complex) 1 ea DAILY ORAL 06/18/17 09:00 07/18/17 08:59 06/18/17 08:21 Height (Feet): 5 Height (Inches): 4.00 Weight (Pounds): 150 KEILA KULKARNI Jun 18, 2017 12:21
--- NOTE | 2017-06-18 14:05 | Wound Care Consultation ---
Wound Assessment Wound Assessment #1: Wound Number: 1 Wound Present on Admission: Yes New Wound: No Status Change of Wound: No Wound Location Body Site Modif: mid Wound Location Body Site: sacral Wound Type: pressure ulcer Ailin Test: Does not Ailin Pressure Ulcer Stage: I Wound Length: 3.0 - scattered Wound Width: 3.0 - scattered Percent of Wound Calwa/Red: 100 Wound Drainage Amount: None Wound Drainage Odor: None/Absent Tissue Surrounding Wound: Intact Wound General Appearance: Reddened Wound Assessment #2: Wound Number: 2 Wound Present on Admission: Yes New Wound: No Status Change of Wound: No Wound Location Body Site Modif: right Wound Location Body Site: arm - forearm Wound Type: discoloration Ailin Test: Does not Ailin Wound Length: 14.0 Wound Width: 6.0 Percent of Wound Purple/Maroon: 100 Wound Drainage Amount: None Wound Drainage Odor: None/Absent Tissue Surrounding Wound: Intact Wound General Appearance: Open to air, Clean/Dry Wound Comment #1 Sacral scattered stage 1 #2 Right forearm discoloration. upon assessment noted patient able to self reposition, reminded and made aware of importance of repositioning, pt understands. Recommendation -Local wound care as ordered. -Turn and reposition. -Keep clean and dry. -Optimize nutrition. -pressure reducing mattress. -Encourage self repositioning offloading area. -Assess and notify MD if any further change of condition to skin is noted. HAILE SHEPHERD Jun 18, 2017 14:05
--- NOTE | 2017-06-18 15:01 | Cardiology Report ---
APPROVED REPORT EKG Measurement Heart [id number] [id number] Normal sinus rhythm Cannot rule out Inferior infarct, age undetermined Possible Anterolateral infarct, age undetermined Abnormal ECG
--- NOTE | 2017-06-18 15:04 | Diagnostic Imaging Report ---
Indication: Chest pain Technique: CT chest was performed utilizing automated exposure control without intravenous contrast material. Axial sagittal and coronal images were generated. CT dose: Total DLP 821.92 mGycm; CTDI vol 26.15 mGy Comparison: Correlation made to concurrent chest radiograph Findings: There is question of very mild smooth septal thickening, a finding which may suggest a degree of fluid overload. There is dependent atelectasis in the posterior lungs. There is no focal airspace consolidation to suggest pneumonia. No pleural effusion or pneumothorax. Heart is normal in size. There are coronary arterial calcifications and aortic valvular calcifications. There is no pericardial effusion. There are multiple calcified hilar mediastinal and a few calcified upper abdominal lymph nodes. No pathologically enlarged lymphadenopathy by imaging size criteria. Thyroid unremarkable in appearance. There is prominent fat attenuation in the upper posterior mediastinum (series 3 image 8). Thoracic aorta is normal in caliber and mildly calcified. A few punctate calcifications are noted within the pancreas. There is no evidence of necrosis in the partially visualized kidneys. Bilateral adrenal glands and spleen are unremarkable. There is degenerative change of the thoracic spine. No acute osseous abnormality is seen. Bilateral breast implants are noted with some evidence of peripheral calcification and partially visualized likely capsular retraction. IMPRESSION: Subtle smooth septal thickening suggesting very mild fluid overload. Dependent atelectasis in the posterior lungs bilaterally. No focal airspace consolidation to suggest pneumonia. Coronary arterial and aortic valvular calcifications. Multiple small calcified hilar, mediastinal and upper abdominal lymph nodes. Findings most commonly related to granulomatous exposure/disease. Additional etiologies not entirely excluded. Clinical correlation recommended. Few punctate calcifications visualized within the pancreas. These may be idiopathic or related to age. Correlate with clinical history to exclude the possibility of chronic pancreatitis. Additional findings as above. The CT scanner at [facility] is accredited by the [employer] and the scans are performed using protocols designed to limit radiation exposure to as low as reasonably achievable to attain images of sufficient resolution adequate for diagnostic evaluation.
--- NOTE | 2017-06-18 15:07 | Cardiology Report ---
APPROVED REPORT EKG Measurement Heart [id number] Normal sinus rhythm Low voltage QRS Possible Inferior infarct, age undetermined Abnormal ECG
[2017-06-18] MEDS ORDERED: Xarelto 10mg tab ORAL SCH (16:30)
--- NOTE | 2017-06-18 19:25 | Cardiology Progress Note ---
Assessment/Plan Assessment/Plan [id number] full noetd dicated chest wall tenderness all wup neg recetnly adn now Objective Last 24 Hour Vital Signs Date Time Temp Pulse Resp B/P (MAP) Pulse Ox O2 Delivery O2 Flow Rate FiO2 06/18/17 16:00 97.2 82 18 115/55 94 97.2 06/18/17 15:58 85 06/18/17 14:52 79 125/59 06/18/17 14:51 125/59 06/18/17 12:00 67 06/18/17 11:59 97.9 72 18 110/51 93 Room Air 97.9 06/18/17 08:22 83 128/58 06/18/17 08:00 82 06/18/17 07:43 97.7 83 18 128/58 91 Room Air 97.7 06/18/17 06:00 115/54 06/18/17 04:00 79 06/18/17 04:00 97.5 88 12 115/54 92 Room Air 97.5 06/18/17 00:00 86 06/18/17 00:00 99.9 89 20 114/70 93 Room Air 99.9 06/17/17 22:33 134/58 06/17/17 20:45 98.2 89 18 134/58 93 Room Air 98.2 06/17/17 20:07 98.7 86 13 105/42 95 Room Air 98.7 06/17/17 19:42 86 13 105/42 95 Room Air Intake and Output 06/17/17 06/18/17 18:59 06:59 Intake Total 0 ml 170 ml Output Total 160 ml Balance 0 ml 10 ml Intake Oral 0 ml 170 ml Output Stool Total 160 ml # Voids 1 Laboratory Tests Test 06/17/17 19:45 06/18/17 00:15 06/18/17 08:45 06/18/17 08:55 Urine Opiates Screen Negative (NEGATIVE) Urine Barbiturates Screen Negative (NEGATIVE) Phencyclidine (PCP) Screen Negative (NEGATIVE) Urine Amphetamines Screen Negative (NEGATIVE) Urine Benzodiazepines Screen Negative (NEGATIVE) Urine Cocaine Screen Negative (NEGATIVE) Urine Marijuana (THC) Screen Negative (NEGATIVE) Erythrocyte Sedimentation Rate 12 MM/HR (0-30) Troponin I 0.000 ng/mL (0.000-0.056) 0.000 ng/mL (0.000-0.056) C-Reactive Protein, Quantitative 3.8 mg/dL (0.00-0.90) H Urine Color Yellow Urine Appearance Clear Urine pH 5 (4.5-8.0) Urine Specific [place] 1.020 (1.005-1.035) Urine Protein Negative (NEGATIVE) Urine Glucose (UA) Negative (NEGATIVE) Urine Ketones 2+ (NEGATIVE) H Urine Occult Blood Negative (NEGATIVE) Urine Nitrite Negative (NEGATIVE) Urine Bilirubin Negative (NEGATIVE) Urine Urobilinogen Normal MG/DL (0.0-1.0) Urine Leukocyte Esterase 1+ (NEGATIVE) H Urine RBC 0-2 /HPF (0 - 2) Urine WBC 2-4 /HPF (0 - 2) Urine Squamous Epithelial Cells Few /LPF (NONE/OCC) Urine Bacteria Few /HPF (NONE) White Blood Count 6.6 K/UL (4.8-10.8) Red Blood Count 4.29 M/UL (4.20-5.40) Hemoglobin 13.8 G/DL (12.0-16.0) Hematocrit 42.6 % (37.0-47.0) Mean Corpuscular Volume 99 FL (80-99) Mean Corpuscular Hemoglobin 32.1 PG (27.0-31.0) H Mean Corpuscular Hemoglobin Concent 32.4 G/DL (32.0-36.0) Red Cell Distribution Width 14.4 % (11.6-14.8) Platelet Count 225 K/UL (150-450) Mean Platelet Volume 8.1 FL (6.5-10.1) Neutrophils (%) (Auto) 73.3 % (45.0-75.0) Lymphocytes (%) (Auto) 16.5 % (20.0-45.0) L Monocytes (%) (Auto) 8.8 % (1.0-10.0) Eosinophils (%) (Auto) 0.9 % (0.0-3.0) Basophils (%) (Auto) 0.4 % (0.0-2.0) Sodium Level 135 MMOL/L (136-145) L Potassium Level 4.9 MMOL/L (3.5-5.1) Chloride Level 101 MMOL/L (98-107) Carbon Dioxide Level 23 MMOL/L (21-32) Anion Gap 11 mmol/L (5-15) Blood Urea Nitrogen 10 mg/dL (7-18) Creatinine 0.3 MG/DL (0.55-1.30) #L Estimat Glomerular Filtration Rate mL/min (>60) Glucose Level 103 MG/DL (74-106) Calcium Level 8.3 MG/DL (8.5-10.1) L Total Bilirubin 0.7 MG/DL (0.2-1.0) Aspartate Amino Transf (AST/SGOT) 31 U/L (15-37) Alanine Aminotransferase (ALT/SGPT) 18 U/L (12-78) Alkaline Phosphatase 51 U/L (46-116) Total Creatine Kinase 149 U/L (26-308) Total Protein 6.5 G/DL (6.4-8.2) Albumin 3.3 G/DL (3.4-5.0) L Globulin 3.2 g/dL Albumin/Globulin Ratio 1.0 (1.0-2.7) Test 06/18/17 18:30 Troponin I Pending [facility] Jun 18, 2017 19:25
[2017-06-18] MEDS ORDERED: CYMBALTA30 MG ORAL (20:33)
[2017-06-18] MEDS ORDERED: Sennosides 8.6mg ORAL SCH (21:00)
[2017-06-18] MEDS: TraZODone 100mg tab ORAL SCH (21:36)
--- NOTE | 2017-06-19 04:45 | Consultation ---
DATE OF CONSULTATION: 06/18/2017 NOTE: POOR AUDIO CARDIOLOGY CONSULTATION CONSULTING PHYSICIAN: Heath Dolan M.D. REFERRING PHYSICIAN: Frank Vila M.D. REASON FOR REFERRAL: Chest pain. HISTORY OF PRESENT ILLNESS: This is an elderly female, who is a resident of convalescent facility. The patient was recently here for evaluation of her chest pain. She had a perfusion imaging and echocardiogram, both of which were negative and the patient was discharged home. The patient in the convalescent facility apparently complained of some chest pain yesterday. She does not really remember the exact pain and now the history that she is providing now is somewhat different she provided to the emergency room physician. Nevertheless, it was pain apparently in the center of her chest. She told the emergency room physician that it was radiating to the left arm, but she denies that today. She denies any shortness of breath. No PND. No orthopnea. She states she is able to sit up and possibly take some steps at a convalescent facility. She does not have any shortness of breath with those activities. There is no PND or orthopnea. No palpitation. She denies any dizziness or lightheadedness on standing. PAST MEDICAL HISTORY: Extensive and my last note, history of CVA, back pain, cataracts, chronic diastolic heart failure, degenerative disk disease, gastroesophageal reflux disease, hyperlipidemia, hypertension, hypothyroidism, insomnia, , status post colostomy, chronic pain, lower extremity edema, partial small bowel obstruction with hernia repair, chronic constipation, major depression, diabetes mellitus, and hypothyroidism. ALLERGIES: None. SOCIAL HISTORY: She does not smoke or drink alcoholic beverages. Does not use any drugs. She is a resident [facility] [place]. REVIEW OF SYSTEMS: GASTROINTESTINAL: Positive for constipation. No bloody or black stools. GENITOURINARY: She denies. PULMONARY: She denies. CONSTITUTIONAL: She denies. NEUROLOGICAL: She denies. PHYSICAL EXAMINATION: GENERAL: Shows to be a morbidly obese female, in no respiratory distress, lying down flat, watching TV, quite comfortable. VITAL SIGNS: Blood pressure has been anywhere between 134/58 to 110/51. NECK: Supple. No jugular venous distention. LUNGS: Clear to auscultation and percussion. CARDIAC: S1 is normal. S2 is normal. Regular rate and rhythm. No heaves, thrills, or gallops noted. Chest wall is tender to palpation. ABDOMEN: Soft and nontender. Positive bowel sounds. Colostomy is present. EXTREMITIES: There is no clubbing, cyanosis, nor edema. NEUROLOGICAL: She is awake, alert, responsive, in no apparent distress. LABORATORY VALUES: Two sets of cardiac enzymes are all negative. Sodium 135, potassium 4.9, chloride 101, bicarbonate 23, BUN of 10, creatinine 0.3, glucose of 103, calcium is 8.3. Liver function tests are normal. Alkaline phosphatase is 51. Total CK of 149. Albumin of 3.9. White count of 6.3, hemoglobin , and platelet count 225. Sedimentation rate is only 12. Urinalysis is fairly unremarkable. Tox screen was negative. Chest x-ray performed in the emergency room, patchy atelectasis at the left base. Calcification of bilateral hilar region, possibly calcified lymph nodes. She did have a CT scan of her chest noncontrast. Due to her age, there findings suggestive of mild degree of fluid overload atelectasis. Aorta is normal in caliber, mildly calcified, coronary artery calcification. No pericardial effusion is noted. Thyroid is unremarkable. Really no other significant abnormalities as noted on this CT scan. Her electrocardiogram basically shows sinus rhythm with normal QRS axis. No ST or T wave abnormalities of any significant degree. The patient's recent workup had included a myocardial perfusion imaging that was performed on 05/26/2017 and shows no imaging findings to suggest ischemia at the level of ejection fraction of 60%. An echocardiogram that was performed at that time showed basically normal wall motion. No evidence of pericardial effusion and no significant valvular dysfunction. Mild diastolic relaxation abnormalities. ASSESSMENT AND PLAN: 1. Atypical chest pain. No evidence of myonecrosis, possibly musculoskeletal. 2. History of hypertension. 3. Chronic pain syndrome. 4. Chronic lumbar disk disease. 5. . Dr. Vila, this patient was seen in cardiac consultation. The patient has no electrocardiographic abnormalities to suggest ischemia. Cardiac enzymes are negative. She has had a recent ischemia evaluation that was negative. Echocardiogram recently within the past three weeks was also negative. The chest wall seems to be tender to palpation is likely the cause of the patient's pain, unfortunately because of her cognitive dysfunction, she is not able to recall all the description of the pain that she experienced making it difficult. However, does not overtly abnormal findings on her exam today and she looks quite comfortable at the present time. No evidence of myonecrosis. No electrocardiographic abnormalities to be of any concern. At this time, I suspect that the pain is likely musculoskeletal from costochondritis related. Heath Dolan M.D. DR: Diego JOB#: [id number] CC:
--- NOTE | 2017-06-21 06:15 | Discharge Summary ---
DATE OF ADMISSION: 06/17/2017 DATE OF DISCHARGE: 06/18/2017 HISTORY AND PHYSICAL EXAMINATION AND DISCHARGE SUMMARY The patient was placed on observation status on 06/17/2017. The patient was discharged on 06/18/2017. DISCHARGE DIAGNOSES: 1. Atypical chest and left body pain, likely noncardiac in etiology, suspect multifactorial including chronic pain syndrome with anxiety and somatization. 2. Recent hospitalization for similar symptoms with negative cardiac evaluation. 3. Recent urinary tract infection. 4. Recent negative Lexiscan for ischemia. 5. Recent cardiac echocardiogram with ejection fraction of 60% to 65% and no evidence of segmental wall motion abnormalities. 6. History of chronic diastolic congestive heart failure. 7. Chronic pain syndrome. 8. 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 9. Degenerative joint disease. 10. Gastroesophageal reflux disease. 11. Hyperlipidemia. 12. Hypertension. 13. Hypothyroidism. 14. History of acute embolic stroke with history of atrial fibrillation. 15. Status post hysterectomy. 16. Status post bowel obstruction from a colostomy in the setting of multiple periumbilical hernia repairs and colonic vesicular fistula. 17. Sleep disorder. 18. History of lupus, on chronic prednisone therapy. 19. Gait instability with use of front wheel walker and assist x1 at baseline. HISTORY OF PRESENT ILLNESS: The patient is a 77-year-old woman, who was brought to the hospital because of complaints of persistent left body pain with an element of left chest pain, unresponsive to nitroglycerin at her fdc facility. The patient had been hospitalized at [facility] from 05/25/2017 through 05/27/2017 with similar symptomatology, felt to be triggered by a urinary tract infection, which ultimately was treated with ceftriaxone. The patient was discharged back to her fdc facility where she chronically is a resident, and according to the staff at the facility, had been in her usual state of health with no acute complaints until the day of admission when she began to complain of pain including the left chest pain. The patient is followed by the [facility] at the fdc facility and they evaluated the patient and treated with sublingual nitroglycerin, which failed to alleviate the pain and the patient was brought by paramedics to the [facility] emergency room. In the emergency room, her initial troponin was normal and the electrocardiogram did not show evidence of acute changes. However, because of the intensity of the pain as described by the patient, Dr. Sevilla felt that the patient required at least serial troponins to rule out an ischemic event. The patient was therefore placed on observation status. Initial troponins failed to produce any rise in troponin or abnormal values. When the patient was seen in her room, she appeared somewhat anxious and definitely somatic. She complained of pain over her entire left side. When asked to localize the pain, she actually stated that the pain was worse in her left hip. Without cuing, the patient did not complain of chest pain specifically. When she was palpated over the entire chest, she complained of diffuse tenderness, which appeared to be as prominent on the right side of the chest as on the left side of the chest. The patient did not appear to be in acute physical distress during the initial presentation. When asked about details of her pain, the patient was unable to describe the specifics of the pain in any detail, but became slightly more anxious and agitated when pressed upon specifics. Besides the chest, the patient also appeared to be tender over the entire left side of her body without clear localization. The hip itself did not appear to be particularly more tender than any other area. PAST MEDICAL HISTORY: The patient's past medical history includes the multiple diagnoses as above and as stated, the recent hospitalization for similar pain symptoms at the end of April. At the time of that discharge, it was felt that the patient's symptoms could be in large part due to chronic pain syndrome with anxiety and somatization and it is recommended that additional evaluation be initiated with respect to these symptoms. PHYSICAL EXAMINATION: VITAL SIGNS: At the time of the initial examination, the patient's blood pressure was 110/51, heart rate was 72 and regular, respiratory rate was 18, temperature 97.9 degrees, and oxygen saturation on room air was 93%. GENERAL: The patient was well developed, not in apparent physical distress, but appearing somewhat anxious and somatic. HEAD AND NECK: Revealed normocephalic and atraumatic skull. The sclerae were anicteric. The oropharynx appeared adequately hydrated. The neck revealed no masses and appeared to have normal range of motion. CHEST: Revealed diminished, but clear breath sounds. CARDIOVASCULAR: Reveals a regular rhythm without gallops, murmurs, or rubs appreciated. BREASTS: Without dominant masses and there is no focal tenderness in the breasts. ABDOMEN: Somewhat obese with old scars in the colostomy in the left lower quadrant. EXTREMITIES: Revealed no significant edema. The patient had old scarring over the right forearm and in the left distal arm near the wrist, which she reported was due to old intravenous infiltrations. These were photographically documented by the nursing staff, but there is no evidence of acute skin lesions in those areaa. NEUROLOGIC: The patient was alert and had fluent speech, but her responses are generally vague suggesting a definite element of cognitive dysfunction, although this may have been in part associated with pseudodementia, given the patient's history of anxiety and psychiatric symptoms. As on the prior admission, the patient was unable to provide great detail in her history, but simply complained bitterly that she had pain and she required pain medications. LABORATORY AND DIAGNOSTIC DATA: The initial laboratory data revealed a white count of 4.0, hematocrit of 42.4%, MCV of 96, and platelet count of 246 with a borderline elevation of neutrophils on the differential. The sedimentation rate was 12. The initial chemistries revealed a sodium of 138, potassium of 3.8, chloride of 103, bicarbonate of 28, BUN of 20, creatinine 1.0, glucose 104, and calcium 9.0. Total bilirubin 0.7, AST of 23, ALT of 10, and alkaline phosphatase 54. Total CK of 53, MB of 1.1. Initial troponins 0.001, subsequent troponins were 0.000 x3. ProBNP is 171. Total protein 7.0, albumin 3.3. C-reactive protein is 3.8. Followup chemistries were not significantly different, but followup white count was down to 6.6 with similar hematocrit and platelet count. Urinalysis showed 0 to 2 RBCs and 2 to 4 WBCs. Her urine drug screen was done in the emergency room, which proved to be entirely negative. Initial chest x-ray was done, which revealed no acute infiltrates, some calcifications in the bilateral hilar areas. A CT scan of the chest was subsequently done, which revealed a question of very mild smooth septal thickening, dependent atelectasis in the posterior lungs, no focal air space consolidation, normal heart size, coronary artery calcifications, and aortic valvular calcifications, no pericardial effusion, and multiple calcified hilar mediastinal and few calcified upper abdominal lymph nodes. No pathologically enlarged lymphadenopathy. Unremarkable thyroid. Prominent fat attenuation in the upper posterior mediastinum and thoracic aorta was normal in caliber and mildly calcified. There were a few punctate calcifications in the pancreas. No evidence of necrosis in the visualized kidneys. Bilateral adrenal glands and spleen were read to be unremarkable. The patient had bilateral breast implants, which were noted with some evidence of peripheral calcification and partially visualized, likely capsular retraction. Based on the patient's previous cardiac evaluation as well as the studies obtained during this hospitalization, there was no evidence of active coronary artery disease or findings compatible with ischemic cardiac damage. The CT scan of the chest was done to rule out a pericarditis or other inflammatory changes since the patient did have a history of lupus and has been on chronic prednisone therapy for that process. However, as noted above, the scan was fairly unremarkable with regard to the etiology for the patient's current presentation. The patient was seen in Cardiology consultation by Dr. Heath Dolan, who evaluated the patient and given both the prior admission and current data agreed that the patient was unlikely having acute coronary ischemic process and the patient could be discharged to her fdc facility. Because of the patient's anxiety as well as her diffuse pain, it was felt the patient might benefit from some recalibration of her psychoactive medications and the patient was begun on Cymbalta 20 mg daily as a treatment for chronic pain syndrome and to adjunctively treat any depressive syndrome. The patient had been admitted on Lexapro, but may require additional psychoactive titration to appropriately control her symptomatology. The situation was discussed with nurse practitioner Pardeep, who is part of the [facility] and the treatment recommendations were discussed. The patient is being discharged back to her fdc facility for further evaluation and treatment. DISCHARGE MEDICATIONS: At the time of discharge, the patient was placed back on her usual medications, which include acetaminophen 650 mg q.4 h. p.r.n., Dulcolax 5 mg tablets 10 mg daily, calcium citrate 500 mg t.i.d., Benadryl 25 mg q.6 h. p.r.n. pruritus, docusate 200 mg b.i.d., Lexapro 30 mg daily, fentanyl 25 mcg patch q.72 h., gabapentin 300 mg nightly, hydralazine 50 mg t.i.d., labetalol 100 mg daily, levothyroxine 75 mcg daily, pantoprazole 40 mg daily, MiraLAX 17 g daily, K-Dur 20 mEq daily, prednisone 10 mg daily, Seroquel 25 mg b.i.d., Xarelto 20 mg daily, senna 17.2 mg nightly, trazodone 200 mg nightly, vitamin D one tablet daily, and Cymbalta 20 mg daily was initiated as well. RECOMMENDATIONS: The recommendations would be to consider tapering the patient's trazodone, Benadryl, gabapentin, and also tapering her fentanyl and other analgesics and titrating upward the Cymbalta. Lexapro could be either continued or decreased depending on the patient's clinical response. If the patient in fact does have recurrent pruritus as well as sleep issues, a low dose of doxepin in the form of Silenor or low dose of normal doxepin could be considered as well as an adjunct antidepressant therapy and also provide assistance with insomnia and control of the patient's chronic pain symptomatology. The need for the patient's chronic prednisone is also unclear at the present time. Certainly, there is no elevation of sedimentation rate or significant elevation of C-reactive protein at the present time and it is unclear whether the prednisone could be gradually tapered off. The patient will be followed up by the [facility] ECP team at her fdc facility. Frank Vila M.D. DR: Tanya JOB#: [id number] CC: IRISH
== END 2017-06-18 22:15 ==
LOC: EDBD 16:09 → EMR 16:30 → 2E 17:29 → EDBEDREQ 18:50
DX: R07.9 Chest pain, unspecified (principal); G89.4 Chronic pain syndrome; M51.36 Other intervertebral disc degeneration, lumbar region; L89.151 Pressure ulcer of sacral region, stage 1; R23.8 Other skin changes; E03.9 Hypothyroidism, unspecified; I50.9 Heart failure, unspecified; K21.9 Gastro-esophageal reflux disease without esophagitis; E78.5 Hyperlipidemia, unspecified; I10 Essential (primary) hypertension; F32.9 Major depressive disorder, single episode, unspecified; E11.9 Type 2 diabetes mellitus without complications; Z86.73 Personal history of transient ischemic attack (TIA), and cerebral infarction without residual deficits; Z88.6 Allergy status to analgesic agent; Z91.018 Allergy to other foods; Z88.8 Allergy status to other drugs, medicaments and biological substances; F41.9 Anxiety disorder, unspecified; Z90.710 Acquired absence of both cervix and uterus; G47.9 Sleep disorder, unspecified; R26.9 Unspecified abnormalities of gait and mobility; Z98.82 Breast implant status
CPT/HCPCS: 36415 ×2; 71045; 71250; 80053 ×2; 80307; 81001; 82550 ×2; 82553; 83880; 84484 ×2; 85025 ×2; 85651; 86140; 87081 ×2; 87086; 93005 ×2; 99285; G0378 ×2; J3010; J8499